=== PATIENT | male | born 1960 | race Caucasian/White ===

== ENCOUNTER → 2021-06-21 09:37 | Outpatient (CLI) | payer MEDICARE, MEDICAID, SELFPAY ==
[2021-06-21 10:07] LABS: Basophils % 0.6 % (0.1-2.0); Eosinophils # 0.1 K/mm3 (0.0-0.4); Eosinophils % 1.3 % (0.1-12.0); Hematocrit 50.3 % (42.0-52.0); Hemoglobin 17.1 g/dL (14.1-18.0); Lymphocytes # 1.3 K/mm3 (0.7-4.5); Lymphocytes % 18.2 % (10-50); Mean Corpuscular Hemoglobin 34.7 pg (27.0-31.2); Mean Platelet Volume 9.3 fl (7.4-10.4); Monocytes # 0.4 K/mm3 (0.1-1.0); Monocytes % 6.2 % (1.7-9.3); Neutrophils # 5.2 K/mm3 (1.8-7.8); Neutrophils % 73.6 % (37.0-80.0); Platelet Count 186 K/mm3 (142-424); Red Blood Count 4.93 M/mm3 (4.60-6.20); Red Cell Distribution Width 12.5 % (11.5-17.5)
[2021-06-21 10:52] LABS: Alanine Aminotransferase 35 U/L (12-78); Albumin Level 4.6 g/dl (3.5-5.0); Albumin/Globulin Ratio 1.5 (1.1-1.8); Alkaline Phosphatase 93 U/L (38-126); Anion Gap 10.7 mEq/L (5-15); Aspartate Amino Transferase 31 U/L (17-59); Bilirubin,Total 1.1 mg/dl (0.2-1.3); Blood Urea Nitrogen 10 mg/dl (9-20); Calcium 9.7 mg/dl (8.4-10.2); Carbon Dioxide 29 mmol/L (22.0-30.0); Chloride 104 mmol/L (98-107); Chol/HDL Ratio 2.8 (1-3.5); Cholesterol 142 mg/dl (140-200); Estimated Glomerular Filt Rate 114 ml/min (>60); GFR (African American) 138 ML/MIN (>60); Glucose 110 mg/dl (74-100); HDL Cholesterol 50 mg/dl (40-60); Potassium 4.7 mmoL/L (3.5-5.1); Sodium 139 mmol/L (136-145); Total Protein,Serum 7.6 g/dl (6.3-8.2); Triglycerides 102 mg/dl (30-150); VLDL Cholesterol 20 mg/dL (0-40)
[2021-06-21 11:03] LABS: Direct LDL Cholesterol 70.51 mg/dL (100-129)
[2021-06-21 11:10] LABS: 25-OH Vitamin D, Total 61.1 ng/mL (30-100)
[2021-06-21 11:23] LABS: Thyroid Stimulating Hormone 1.54 uIU/mL (0.465-4.68)
[2021-06-21 11:41] LABS: Vitamin B12 795 pg/mL (239-931)
== END ==
PROVIDERS: Visit Provider Internal Medicine Adolescent Medicine
DX: G20 Parkinson's disease (principal); E78.5 Hyperlipidemia, unspecified; Z86.39 Personal history of other endocrine, nutritional and metabolic disease
CPT/HCPCS: 36415; 80053; 80061; 82306; 82607; 84443; 85025

== ENCOUNTER 2023-12-01 15:36 | Outpatient (CLI) | payer MEDICARE, MEDICAID, SELFPAY ==
--- NOTE | 2023-12-01 15:53 | ECG_ITS ---
APPROVED REPORT Exam: Resting ECG HR:62 bpm ECG Measurements Heart Rate 62 AXES NV 192 P 35 QRSd 91 QRS 52 QT 435 T 67 QTc 441 Conclusion SINUS RHYTHM NONSPECIFIC T-WAVE ABNORMALITY BORDERLINE ECG UNCONFIRMED REPORT Electronically signed by : Clyde Pruitt MD 12/03/2023 20:59:06
== END 2023-12-01 23:59 ==
LOC: RT 15:37
PROVIDERS: PCP Specialist; Visit Provider Specialist
DX: R07.9 Chest pain, unspecified (principal)
CPT/HCPCS: 93005

== ENCOUNTER 2024-01-25 14:50 | Emergency (ER) | payer MEDICARE, MEDICAID, SELFPAY ==
--- NOTE | 2024-01-25 14:57 | XR_ITS ---
PROCEDURE INFORMATION: Exam: XR Left Hand Exam date and time: 01/25/2024 2:56 PM Age: 63 years old Clinical indication: Injury or trauma; Fall; Swelling (edema); Wrist; Left; Additional info: Fell TECHNIQUE: Imaging protocol: Radiologic exam of the left hand. Views: 3 or more views. COMPARISON: No relevant prior studies available. FINDINGS: Limitations: Lateral view limited due to overlap of the fingers. Bones/joints: Acute mildly comminuted transverse fracture of the radius distal diametaphysis; there is 1/4 shaft width dorsal subluxation of the distal fracture fragment, with mild dorsal tilt of the articular surface. Degenerative change of the 1st metacarpal phalangeal joint. Soft tissues: Soft tissue swelling. IMPRESSION: Acute mildly comminuted transverse fracture of the radius distal diametaphysis; there is 1/4 shaft width dorsal subluxation of the distal fracture fragment, with mild dorsal tilt of the articular surface.
--- NOTE | 2024-01-25 14:57 | XR_ITS ---
PROCEDURE INFORMATION: Exam: XR Left Forearm Exam date and time: 01/25/2024 3:02 PM Age: 63 years old Clinical indication: Injury or trauma; Fall; Swelling (edema); Wrist; Left; Additional info: Fell TECHNIQUE: Imaging protocol: Radiologic exam of the left forearm. Views: 2 views. COMPARISON: CR Wrist L 01/25/2024 2:58 PM FINDINGS: Bones/joints: Acute transverse fracture of the radius distal diametaphysis; there is 1/4 shaft width dorsal subluxation of the distal fracture fragment, with mild dorsal tilt of the articular surface. Soft tissues: Soft tissue swelling at the wrist. IMPRESSION: Acute transverse fracture of the radius distal diametaphysis; there is 1/4 shaft width dorsal subluxation of the distal fracture fragment, with mild dorsal tilt of the articular surface.
--- NOTE | 2024-01-25 14:57 | XR_ITS ---
PROCEDURE INFORMATION: Exam: XR Left Wrist Exam date and time: 01/25/2024 2:58 PM Age: 63 years old Clinical indication: Injury or trauma; Fall; Swelling (edema); Wrist; Left; Additional info: Fell TECHNIQUE: Imaging protocol: Radiologic exam of the left wrist. Views: 3 or more views. COMPARISON: CR Hand L 01/25/2024 2:56 PM FINDINGS: Bones/joints: Acute mildly comminuted transverse fracture of the radius distal diametaphysis; there is 1/4 shaft width dorsal subluxation of the distal fracture fragment, with mild dorsal tilt of the articular surface. Soft tissues: Soft tissue swelling. IMPRESSION: Acute mildly comminuted transverse fracture of the radius distal diametaphysis; there is 1/4 shaft width dorsal subluxation of the distal fracture fragment, with mild dorsal tilt of the articular surface.
[2024-01-25 15:10] VITALS: BP 145/78; PULSE 60; RESP 18; TEMP 36.4; O2SAT 96; BMI 34.0
--- NOTE | 2024-01-25 15:38 | EXP.UTC ---
Discharge Plan Disposition Patient Disposition: Home, Self-Care Condition: Good Prescriptions Prescriptions: No Action amantadine HCl 100 mg capsule 100 mg PO BID Qty: 60 5RF donepezil [Aricept] 10 mg tablet 10 mg PO HS atorvastatin 40 mg tablet 40 mg PO HS cholecalciferol (vitamin D3) 25 mcg (1,000 unit) capsule 25 mcg PO DAILY cyanocobalamin (vitamin B-12) 1,000 mcg capsule 1,000 mcg PO DAILY diclofenac sodium 75 mg tablet,delayed release (DR/EC) 75 mg PO BID propranolol 10 mg tablet 10 mg PO BID sertraline [Zoloft] 50 mg tablet 50 mg PO DAILY carbidopa-levodopa 25-100 mg tablet 2 tab PO TID Qty: 180 11RF carbidopa-levodopa 50-200 mg tablet extended release 1 tab PO TID Qty: 90 12RF entacapone 200 mg tablet 200 mg PO TID Qty: 90 11RF Referrals Follow up/Referrals: Lyndon Gutierrez DO [Staff Physician] - See instructions (Call office on 01/26/2024 in AM to schedule appointment for 01/29/2024. ) Clyde Pruitt MD [Primary Care Provider] - See instructions Activity Restrictions/Add. Instructions Additional Instructions/Restrictions: rest Ice with cold pack for 20 minutes remove may repeat for comfort every hour splint for support and swelling no less in the shower. Be sure not too tight but not to lose either Elevate with arm above your heart as much as possible to help reduce swelling and therefore pain Ibuprofen every 6 hours as needed for pain or inflammation. If needs something more you can take Tylenol every 4 hours as needed as long as her primary care has told he was okayed for you to take both. Follow-up immediately if new or worsening symptoms or no noticeable improvement over the next 3-5 days. call ortho on friday for appointment on Clinical Impressions Clinical Impression: Distal radial fracture Instructions Patient Instructions: DI for Forearm Fracture Discharge ED Provider: Edenilson ([facility])Mackenzie [facility] HPI General Stated complaint: AO Fall left wrist swelling/pain Mode of Arrival: Ambulatory Source of Information: Patient Limitations: No Limitations Time Seen by Provider: 01/25/24 15:38 Description of Symptoms (Recalled from Triage Doc. by RN): Pt fell and hurt left wrist. HEENT Symptoms (Recalled from RN notes): No Resp Symptoms (Recalled from RN notes): No Skin Symptoms (Recalled from RN notes): No MS Symptoms (Recalled from RN notes): Yes Functional Status (Recalled from RN notes): n/a History of Present Illness Provider Complaint: 63 yr old male presents for fell and hurt left wrist. pt states he was at the table and stood up and lost balance and fell and arm hit the floor. states no other areas hurt Related Data Home Medications Medication Instructions Recorded Confirmed atorvastatin 40 mg tablet 40 mg PO HS 01/22/23 01/25/24 cholecalciferol (vitamin D3) 25 25 mcg PO DAILY 01/22/23 01/25/24 mcg (1,000 unit) capsule cyanocobalamin (vitamin B-12) 1,000 mcg PO DAILY 01/22/23 01/25/24 1,000 mcg capsule diclofenac sodium 75 mg 75 mg PO BID 01/22/23 01/25/24 tablet,delayed release donepezil 10 mg tablet (Aricept) 10 mg PO HS 01/22/23 01/25/24 propranolol 10 mg tablet 10 mg PO BID 01/22/23 01/25/24 sertraline 50 mg tablet (Zoloft) 50 mg PO DAILY 01/22/23 01/25/24 Previous Rx's Medication Instructions Recorded carbidopa 25 mg-levodopa 100 mg 2 tab PO TID #180 tabs 11/25/23 tablet carbidopa ER 50 mg-levodopa 200 mg 1 tab PO TID #90 tabs 11/25/23 tablet,extended release entacapone 200 mg tablet 200 mg PO TID #90 tabs 11/25/23 amantadine HCl 100 mg capsule 100 mg PO BID #60 caps 12/01/23 Allergies Allergy/AdvReac Type Severity Reaction Status Date / Time No Known Allergies Allergy Verified 01/25/24 15:36 Worker's Comp Is this a Worker's Comp case?: No [facility] Disclaimer: The information contained in this section may have been updated after the patient was seen, as this information can be updated by other users. 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) Smoking Status: Never smoker alcohol intake: never current occupational status: retired Travel in the last 8 weeks: None ROS Obtained: Yes All systems reviewed & no additional complaints except as documented Constitutional Constitutional: Reports system reviewed and no additional complaints, except as documented Eyes Eyes: Reports system reviewed and no additional complaints, except as documented ENT Ears, Nose, Mouth, and Throat: Reports system reviewed and no additional complaints, except as documented Cardiovascular Cardiovascular: Reports system reviewed and no additional complaints, except as documented Respiratory Respiratory: Reports system reviewed and no additional complaints, except as documented Musculoskeletal Musculoskeletal: Reports system reviewed and no additional complaints, except as documented, Reports as per HPI, Reports arthralgias, Reports joint stiffness, Reports joint swelling and Reports limited range of motion Neurologic Neurologic: Reports system reviewed and no additional complaints, except as documented Endocrine Endocrine: Reports system reviewed and no additional complaints, except as documented Hematologic/Lymphatic Henatologic/Lymphatic: Reports system reviewed and no additional complaints, except as documented Allergic/Immunologic Allergic/Immunologic: Reports system reviewed and no additional complaints, except as documented Physical Exam General General appearance: alert and in no apparent distress Head Head exam: atraumatic Eye Eye exam: Present normal appearance and PERRL ENT ENT exam: Present normal exam Respiratory Respiratory exam: Present normal lung sounds bilaterally Cardiovascular Cardiovascular exam: Present regular rate and normal rhythm Expanded Upper Extremity Exam Left: L/R Arms Top View: 1. brusing, swelling Neurological Exam Neurological exam: Present alert and oriented X3 Skin Skin exam: Present warm and intact Medical Decision Making Medical Records Medical records reviewed: Yes I reviewed the patient's medical records. Zafar Inquiry Pt receiving controlled substance: No Zafar was queried for this patient: No Vital Signs: 01/25/24 15:10 Temperature 97.6 F Temperature Source Oral Pulse Rate [Right Radial] 60 Respiratory Rate 18 Blood Pressure [Right Arm] 145/78 H Blood Pressure Mean [Right Arm] 100 Blood Pressure Source [Right Arm] Automatic Cuff Blood Pressure Position [Right Arm] Sitting 02 Sat by Pulse Oximetry 96 Oxygen Delivery Method Room Air Orders (Tests/Meds): ORDERS Category Date Time Status Forearm XR left 2 views [XR forearm LT 2V] Stat Exams 01/25/24 14:57 Taken XR hand LT min 3V Stat Exams 01/25/24 14:57 Taken XR wrist LT min 3V Stat Exams 01/25/24 14:57 Taken Radiology Data #1: Image(s): Wrist Image Reviewed: Yes I have reviewed radiologist's interpretation Preliminary Findings: Abnormal fracture Physician Consults Physician Consulted: Dr gutierrez Time: 16:35 Reason -: Orthopedic Eval/Care Comment/Response: recommends sugar thong splint, sling, call office friday for appoint on
[2024-01-25 17:00] VITALS: BP 145/78; PULSE 60; RESP 18; TEMP 36.4; O2SAT 96
== END 2024-01-25 17:00 | disposition home or self-care (01) ==
PROVIDERS: Emergency Provider Nurse Practitioner Family; PCP Internal Medicine Adolescent Medicine
DX: S52.322A Displaced transverse fracture of shaft of left radius, initial encounter for closed fracture (principal); W18.39XA Other fall on same level, initial encounter; M25.532 Pain in left wrist
CPT/HCPCS: 73090; 73110; 73130; 99204; 99212; G0463

== ENCOUNTER 2024-01-29 09:46 | Outpatient (CLI) | payer MEDICARE, SELFPAY ==
[2024-01-29 10:10] LABS: Basophils % 0.4 % (0.1-2.0); Eosinophils # 0.1 K/mm3 (0.0-0.4); Hematocrit 44.9 % (42.0-52.0); Hemoglobin 14.8 g/dL (14.1-18.0); Lymphocytes # 1.3 K/mm3 (0.7-4.5); Lymphocytes % 19.3 % (10-50); Mean Corpuscular HGB Conc 32.9 g/dL (31.8-35.4); Mean Corpuscular Hemoglobin 33.9 pg (27.0-31.2); Mean Corpuscular Volume 102.9 fl (80-94); Mean Platelet Volume 9.5 fl (7.4-10.4); Monocytes # 0.5 K/mm3 (0.1-1.0); Monocytes % 7.5 % (1.7-9.3); Neutrophils # 4.6 K/mm3 (1.8-7.8); Neutrophils % 70.8 % (37.0-80.0); Platelet Count 161 K/mm3 (142-424); Red Blood Count 4.36 M/mm3 (4.60-6.20); Red Cell Distribution Width 13.2 % (11.5-17.5); White Blood Count 6.5 K/mm3 (4.8-10.8)
[2024-01-29 10:37] LABS: Chloride 106 mmol/L (98-107)
[2024-01-29 10:38] LABS: Potassium 4.4 mmoL/L (3.5-5.1); Sodium 140 mmol/L (136-145)
[2024-01-29 10:40] LABS: Alanine Aminotransferase 5 U/L (12-78); Alkaline Phosphatase 92 U/L (38-126); Aspartate Amino Transferase 27 U/L (17-59); Bilirubin,Total 0.9 mg/dl (0.2-1.3); Blood Urea Nitrogen 17 mg/dl (9-20); Estimated Glomerular Filt Rate 113 ml/min (>60); GFR (African American) 137 ML/MIN (>60)
[2024-01-29 10:41] LABS: Albumin Level 3.9 g/dl (3.5-5.0); Albumin/Globulin Ratio 1.5 (1.1-1.8); Anion Gap 8.4 mEq/L (5-15); Calcium 9.2 mg/dl (8.4-10.2); Carbon Dioxide 30 mmol/L (22.0-30.0); Globulin 2.6 g/dL (1.3-3.2); Glucose 100 mg/dl (74-100); Total Protein,Serum 6.5 g/dl (6.3-8.2)
== END 2024-01-29 23:59 | disposition home or self-care (01) ==
LOC: LAB 09:50
PROVIDERS: PCP Nurse Practitioner Family; Visit Provider Orthopaedic Surgery
DX: Z01.818 Encounter for other preprocedural examination (principal)
CPT/HCPCS: 36415; 80053; 85025

== ENCOUNTER 2024-02-04 10:33 | Day surgery (SDC) | payer MEDICARE, SELFPAY ==
[2024-02-03 13:13] VITALS: BMI 29.9
[2024-02-04] VITALS (11 sets, daily range): BP systolic 143–160; BP diastolic 77–108; PULSE 71–83; RESP 16–26; TEMP 36.1–36.5; O2SAT 91–98
[2024-02-04] MEDS: CEFAZOLIN SODIUM 2 GM in 0.9 % SODIUM CHLORIDE 100 ML IV (11:33)
--- NOTE | 2024-02-04 13:38 | XR_ITS ---
FINAL REPORT CLINICAL HISTORY: ORIF LEFT WRIST 2.76 mgy 1.41 fluoro time FINDINGS: FLUOROSCOPY LESS THAN 1 HOUR HISTORY: Fluoroscopy guidance. Fluoroscopic guidance was provided for ORIF left wrist. 2 spot films were obtained. A total of 1.41 minutes of fluoroscopy time were used. Total DAP: 2.76 mGy IMPRESSION: As above. Reviewed, Interpreted and Dictated by Dawit Hanley III, MD Transcribed by Renay Brady Authenticated and [facility]
--- NOTE | 2024-02-04 14:03 | EXP.OP.NOTE ---
Date of procedure: 02/04/24 Pre-op Diagnosis:: Left distal radius fracture intra-articular Post-op Diagnosis:: Same Procedure performed:: Open reduction internal fixation left distal radius fracture 3+ part, intra-articular Surgeon:: Lyndon Franco DO TAPERING MACHINE OPERATOR:: Bandar Henriquez Anesthesia: GETA and regional Estimated blood loss (mL): 0 Operative findings:: Comminuted intra-articular distal radius fracture with shortening and loss of volar tilt Operative note:: Patient was identified preoperatively. Left wrist marked with yes and my initials. Underwent a block with anesthesia. Taken the operating room placed upon operating bed. General anesthesia administered airway secured. Left upper extremity prepped and draped normal sterile fashion. Once prepped and draped final operative timeout performed to identify proper patient procedure and extremity. Everyone involved in the case agreed. There were no counter indications to beginning. Did receive preoperative antibiotics. Marking pen was used to ekaterina plan incision over the volar wrist and the FCR tendon. Esmarch was used to exsanguinate the extremity and pneumatic tourniquet inflated to 250 mmHg. Skin knife was used to incise through skin and FCR tendon sheath which was retracted radially throughout the procedure to protect the radial artery. The floor of the FCR was then open. Dissection was taken down the pronator muscle which was cut in L-type fashion off the distal radius. Fracture site was encountered hematoma encountered. There was intra-articular fracture at the DRUJ and radiocarpal joint. Shortening and comminution present. Reduction maneuver performed under direct visualization with the help of a freer elevator. With traction and reduction maneuver radius was reduced to restore length and neutral volar tilt. Plate was selected from the [employer] volar distal radius set and placed on the wrist. Pulmonary really held to the bone with a K wire. A cortical screw was placed proximally to reduce the plate to the bone and then distal variable guide was utilized to placed appropriate angle locking distal screws. An additional cortical screw was placed and additional locking screw was placed in the shaft. X-rays were taken the AP and lateral views that show good reduction of the fracture with appropriate length and acceptable tilt. Irrigation of wound performed deep layers closed with Vicryl stitch skin closed with a 3-0 nylon stitch. Sterile dressing placed well-padded volar splint placed patient waken anesthesia taken recovery stable condition Condition: stable Disposition: PACU Complications:: None apparent
--- NOTE | 2024-02-04 14:45 | P.PNANES_ITS ---
[facility] Disclaimer: The information contained in this section may have been updated after the patient was seen, as this information can be updated by other users. 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 Chest pain Recurrent chest pressure in the last few weeks. Today the patient was asymptomatic. Arthritis Hyperlipidemia Memory loss Memory loss currently on donezepil 10 mg p.o. nightly. Differential gnosis includes: MCI with memory loss versus subcortical dementia of Lewy body. Denies parasomnias, REM behavior disorder, hallucinations. Surgical History History of artificial eye lens Family History Other Coronary artery disease Diabetes Hypertension Social History Smoking Status: Never smoker alcohol intake: never substance use type: denies use current occupational status: retired Travel in the last 8 weeks: None [facility] Anesthesia Checklist Patient Identification Patient Identification: Arm Band and Family Structural Data Admitted From: Home Planned Operative Procedure/s: ORIF RADIUS FRACTURE Consent for Planned Operative Procedure(s) Verified: Yes Verified Documents: Surgical Consent and History and Physical NPO Status Verified Time NPO: 00:00 Additional verifications Patient : No Anesthesia Reactions: No Hx Blood Transfusions: No Blood Transfusion Reaction: No Cephalosporin Allergy: No Previous Colonoscopy: No Airway Assessment Mallampati Score:: Class II C-Spine Mobility Assessed: Yes TMJ Mobility Assessed: Yes Dentition: Poor Dentition Neurological Assessment Level of Consciousness: Awake, Alert, Appropriate and Follows Commands Hx Seizures: No Numbness or tingling in extremities: No Anesthesia Plan ASA Class: II Anesthesia Type: General w/block Preoperative Comments Pre-Operative Comments: Parkinson's disease
--- NOTE | 2024-02-04 14:48 | P.PNANES_ITS ---
[facility] Anesthesia Record Part I Anesthesia Record I Intake, IV Amount: 800 Hydration: Adequate Estimated blood loss (mL): 10 Urine output (mL): 0 Blood Products used (#): none Blood Pressure: 155/77 SaO2: 91 Pulse Rate: 74 Airway Patency: Patent Respiratory Rate: 26 Temperature: 97.2 F Patient is:: Drowsy and Stable Stable to PACU at:: 14:00
--- NOTE | 2024-02-04 15:04 | SUR.PHASEI ---
1430: Anesthesia notified of patient's O2 saturation staying in low 90's. Per TANIA Landeros patient status satisfactory to transfer to Post-op. 1440: Patient O2 saturation remaining between 93-95%. Patient transferred to Post-op at this time.
--- NOTE | 2024-02-04 16:47 | EXP.ANES.II ---
[facility] Anesthesia Record Part II Anesthesia Record Part II Discharge Time: 14:30 Destination: Surgical Day Care (OP Surgery) PACU nurse assessment reviewed?: Yes Patient Condition:: Good Anesthesia Complications:: None Swallowing reflex intact?: Yes Airway Patency: Patent Cyanosis?: No Blood Pressure: 152/97 SaO2: 94 Respiratory Rate: 18 Pulse Rate: 80 Temperature: 97.2 F Mental Status: Alert & Oriented Pain level:: 0 Nausea and/or vomitting:: None Intake, IV Amount: 0 Hydration: Adequate
== END 2024-02-04 15:16 | disposition home or self-care (01) ==
PROVIDERS: PCP Nurse Practitioner Family; Visit Provider Orthopaedic Surgery
PROC: (CPT 25609; principal; 2024-02-04 11:00)
DX: S52.572A Other intraarticular fracture of lower end of left radius, initial encounter for closed fracture (principal); Z79.899 Other long term (current) drug therapy; R29.6 Repeated falls; W01.0XXA Fall on same level from slipping, tripping and stumbling without subsequent striking against object, initial encounter; Z91.81 History of falling; G20.A1 Parkinson's disease without dyskinesia, without mention of fluctuations
CPT/HCPCS: 25609; 73100; 76000; 96374; J3490; C1713; C1776; J2405

== ENCOUNTER 2024-02-19 09:09 | Outpatient (CLI) | payer MEDICARE, SELFPAY ==
--- NOTE | 2024-02-19 09:12 | XR_ITS ---
FINAL REPORT CLINICAL HISTORY: left orif COMPARISON: Intraoperative films dated 02/04/2024 FINDINGS: 3 images of the left wrist were obtained. An overlying splint slightly limits image quality. A sideplate and screws bridge a healing fracture of the distal radius. There is slight dorsal displacement of the distal fragment on the lateral view. The joint spaces are intact. There is no soft tissue abnormality identified. IMPRESSION: Healing fracture of the distal radius with a sideplate and screws as described. There is slight dorsal displacement of the distal fragment on the lateral view. Reviewed, Interpreted and Dictated by Eloy Pollock MD Transcribed by Lu Mitchell Authenticated and [facility]
== END 2024-02-19 23:59 | disposition home or self-care (01) ==
LOC: RAD 09:10
PROVIDERS: PCP Nurse Practitioner Family; Visit Provider Physician Assistant Surgical
DX: M25.532 Pain in left wrist; S52.532A Colles' fracture of left radius, initial encounter for closed fracture
CPT/HCPCS: 73110

== ENCOUNTER 2024-03-01 10:38 | Outpatient (CLI) | payer MEDICARE, SELFPAY ==
--- NOTE | 2024-03-01 10:43 | XR_ITS ---
FINAL REPORT CLINICAL HISTORY: lt wrist pain FINDINGS: LEFT WRIST Three views of the left wrist were obtained to prior exam from 02/19/2024. There are postoperative changes of ORIF of a distal radial fracture. There is also a fracture of the ulnar styloid process. There has been sideplate and screw fixation. One of the distal screws has migrated anteriorly 17 mm. IMPRESSION: Sideplate and screw fixation of distal radial fracture with a distal screw seen migrated anteriorly 17 mm. Reviewed, Interpreted and Dictated by Dawit Hanley III, MD Transcribed by Gisella Tamez Authenticated and [facility]
== END 2024-03-01 23:59 | disposition home or self-care (01) ==
LOC: RAD 10:39
PROVIDERS: PCP Nurse Practitioner Family; Visit Provider Orthopaedic Surgery
DX: M25.532 Pain in left wrist; S52.532A Colles' fracture of left radius, initial encounter for closed fracture
CPT/HCPCS: 73110

== ENCOUNTER 2024-03-10 17:35 | Observation (INO) | payer MEDICARE, SELFPAY ==
[2024-03-09 08:43] VITALS: BMI 33.9
[2024-03-10] VITALS (20 sets, daily range): BP systolic 104–176; BP diastolic 65–100; PULSE 78–94; RESP 14–18; TEMP 36.4–36.9; O2SAT 92–99
[2024-03-10] MEDS: LACTATED RINGERS 1000ML 1,000 ML 100 ML IV ×2 (11:10→20:09)
--- NOTE | 2024-03-10 14:13 | EXP.ANES.CKL ---
[facility] Disclaimer: The information contained in this section may have been updated after the patient was seen, as this information can be updated by other users. 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 Chest pain Recurrent chest pressure in the last few weeks. Today the patient was asymptomatic. Arthritis Hyperlipidemia Memory loss Memory loss currently on donezepil 10 mg p.o. nightly. Differential gnosis includes: MCI with memory loss versus subcortical dementia of Lewy body. Denies parasomnias, REM behavior disorder, hallucinations. Surgical History History of artificial eye lens Family History Other Coronary artery disease Diabetes Hypertension Social History (Updated 03/10/24 @ 11:11 by Kay Jackson RN) Smoking Status: Never smoker alcohol intake: never substance use type: denies use current occupational status: retired Travel in the last 8 weeks: None [facility] Anesthesia Checklist Patient Identification Patient Identification: Arm Band Structural Data Admitted From: Home Planned Operative Procedure/s: Left Wrist Hardware Removal, Possible Screw Placement Consent for Planned Operative Procedure(s) Verified: Yes Verified Documents: Surgical Consent and History and Physical NPO Status Verified Time NPO: 00:00 Additional verifications Anesthesia Reactions: No Hx Blood Transfusions: No Blood Transfusion Reaction: No Airway Assessment Mallampati Score:: Class II C-Spine Mobility Assessed: Yes TMJ Mobility Assessed: Yes Dentition: Good Dentition Neurological Assessment Level of Consciousness: Awake, Alert and Appropriate Anesthesia Plan Anesthesia Risk discussed: Yes Anesthesia Plan: Verified ASA Class: III Anesthesia Type: General w/block (Left Supraclavicular Nerve Block.)
[2024-03-10] MEDS: CEFAZOLIN SODIUM 2 GM in 0.9 % SODIUM CHLORIDE 100 ML IV (14:18)
--- NOTE | 2024-03-10 15:38 | XR_ITS ---
FINAL REPORT CLINICAL HISTORY: HARDWARE REMOVAL 0.3 MIN FLUORO 0.42 mGy FINDINGS: FLUOROSCOPY LESS THAN 1 HOUR HISTORY: Intraoperative removal of hardware left wrist FINDINGS: Fluoroscopic guidance was provided for intraoperative hardware removal from the left wrist. For spot films were obtained. 0.3 minutes of fluoroscopy time were used. Overall dosage accrued was 0.42 mGy. IMPRESSION: As above. Reviewed, Interpreted and Dictated by Laura Lloyd MD Transcribed by Lu Mitchell Authenticated and [facility]
--- NOTE | 2024-03-10 16:17 | P.PNANES_ITS ---
[facility] Anesthesia Record Part I Anesthesia Record I Intake, IV Amount: 1,500 Hydration: Adequate Estimated blood loss (mL): 0 Urine output (mL): 0 Blood Pressure: 140/100 SaO2: 96 Pulse Rate: 89 Airway Patency: Patent Respiratory Rate: 14 Temperature: 97.6 F Patient is:: Awake and Stable Stable to PACU at:: 16:16
--- NOTE | 2024-03-10 16:21 | EXP.OP.NOTE ---
Date of procedure: 03/10/24 Pre-op Diagnosis:: Failed hardware left wrist status post fall after previous open reduction internal fixation with volar plating Post-op Diagnosis:: Same Procedure performed:: Left wrist removal of implants, deep. Volar plate with screws Surgeon:: Lyndon Franco DO CNC SERVICE TECHNICIAN:: Adam Rainey Anesthesia: GETA and regional Estimated blood loss (mL): 20 Clinical Note:: Patient had previous open reduction internal fixation with volar plating to the wrist. Unfortunately had several falls during the recovery period. This is caused by his Parkinson disease and balance issues. Subsequently because failure of the hardware and prominence of the distal locking screws which need to be removed. Operative findings:: Hardware failure with bending of 1 distal locking screw and loosening of 3 distal locking screws from the volar plate Operative note:: Patient identified preoperatively. Left wrist marked with yes and my initials. Underwent a block with anesthesia. Taken the operating room placed upon the radiolucent bed with a hand table. Left upper extremity was prepped and draped in normal sterile fashion. Once prepped and draped final operative timeout performed to identify proper patient procedure and extremity. Everyone involved the case agreed. There were no counter indications to beginning. Did receive preoperative antibiotics. X-ray was brought into identify distal radius and prominence of the distal locking screws. Skin knife is used to ekaterina plan incision over the volar wrist to previous incision. Esmarch was used exsanguinate extremity pneumatic tourniquet inflated to 250 mmHg. Skin knife was used incise through skin there is 1 very prominent screw that was removed without difficulty. Then dissection was taken down in the plane of previous dissection to the volar plate. FCR tendon was retracted radially throughout the procedure to protect the radial artery. Careful dissection was taken down to remove the scarring and scar tissue over the volar plate the remainder of the distal locking screws were removed without difficulty and the 3 screws in the shaft were removed subsequently followed by the volar plate. Unfortunately during fall during recovery the fracture site had shifted however there was a significant amount of callus and early healing present. Decision was made not to replace screws distally secondary to the shifting of the fracture and stability radiographically. Irrigation of wound performed subcutaneous closed with Vicryl stitch nylon in the skin. X-rays were taken to confirm complete removal of the hardware. Sterile dressing placed followed by a sugar-tong splint and a sling. Patient waken anesthesia taken recovery in stable condition. Condition: stable Disposition: PACU Complications:: None apparent
--- NOTE | 2024-03-10 17:31 | SUR.OPER ---
house aware of admission.
--- NOTE | 2024-03-10 17:31 | SUR.PHASEII ---
1703: Pt's sister states she is unable to stay with the patient over night. Pt has had general anesthesia, a supraclavicular nerve block on the left side, ambulates at baseline with a walker, and does not have any family members who can stay with him. Dr. Franco called at this time and he advised this RN to call the housekeeper caregiver and Dr. Mehta for possible placement on the medical surgical floor over night. 1705: Spoke with Dr. Mehta and housekeeper caregiver. Dr. Mehta to call this RN with further instruction. 1730: Call received from Dr. Mehta. Will admit due to patient's inability to ambulate with his walker due to his cast and block.
--- NOTE | 2024-03-10 17:33 | SUR.PHASEII ---
warehouseman called and stated pt will be going to room 207. sister aware.
--- NOTE | 2024-03-10 17:42 | SUR.PHASEII ---
attempted to call report to norberto quevedo. she stated to call back in 5 minutes.
--- NOTE | 2024-03-10 17:58 | SUR.PHASEII ---
called report to norberto quevedo
--- NOTE | 2024-03-10 18:02 | PC.NURSE ---
arrived by stretcher from surgery
--- NOTE | 2024-03-10 19:24 | EXP.HP ---
History of Present Illness *Admission Date: 03/10/24 *Reason for visit:: Inability to ambulate independently, postop left wrist surgery *History of present illness: Mr. Altamirano is a 63-year-old gentleman with Parkinson's disease who has experienced multiple falls over the past few months. Approximately 5 weeks ago he fell and broke his left wrist. It was repaired with open reduction and internal fixation with volar plating. Unfortunately he has had multiple falls during the healing, and sustained failure of his hardware. Due to falls from his Parkinson's, had failure of hardware and prominence of the distal locking screw which needed to be removed. Presented today for elective removal of implants including deep volar plate with screws. Patient tolerated procedure well. Unfortunately, unable to discharge home safely as he has no one to stay with him and lives by himself in an independent living setting. Medicine was consulted for admission and therapy evaluation to assist with safe dispo home. Patient's sister at bedside, and states of discussion about goals of care plan. Patient has been having progression of his disease. Plan was for him to move in with her after building a new house, but this plan has been delayed due to construction difficulties. Patient currently gets around with walker and cane. He gets assistance where he lives with assistance of food. Takes extensive medication for his Parkinson's daily. Currently had some nerve block of left upper extremity to assist with pain control. Unfortunately that means he cannot use his left arm. Patient stable on room air. Denies any chest pain or shortness of breath. [facility] Disclaimer: The information contained in this section may have been updated after the patient was seen, as this information can be updated by other users. 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 Chest pain Arthritis Hyperlipidemia Memory loss Surgical History History of artificial eye lens Family History Diabetes Coronary artery disease Hypertension Social History Smoking Status: Never smoker alcohol intake: never substance use type: denies use current occupational status: retired Travel in the last 8 weeks: None Review of Systems Review of Systems Review of systems (narrative): 14 point review of systems performed, pertinent positives and negatives as per [facility] Meds Home Medications and Allergies Home Medications Medication Instructions Recorded Confirmed Type atorvastatin 40 mg tablet 40 mg PO HS 01/22/23 03/10/24 History cholecalciferol (vitamin D3) 25 25 mcg PO DAILY 01/22/23 03/10/24 History mcg (1,000 unit) capsule cyanocobalamin (vitamin B-12) 1,000 mcg PO DAILY 01/22/23 03/10/24 History 1,000 mcg capsule diclofenac sodium 75 mg 75 mg PO BID 01/22/23 03/10/24 History tablet,delayed release donepezil 10 mg tablet (Aricept) 10 mg PO HS 01/22/23 03/10/24 History propranolol 10 mg tablet 10 mg PO BID 01/22/23 03/10/24 History sertraline 50 mg tablet (Zoloft) 50 mg PO DAILY 01/22/23 03/10/24 History carbidopa ER 50 mg-levodopa 200 mg 1 tab PO TID #90 tabs 11/25/23 03/10/24 Rx tablet,extended release entacapone 200 mg tablet 200 mg PO TID #90 tabs 11/25/23 03/10/24 Rx amantadine HCl 100 mg capsule 100 mg PO BID #60 caps 12/01/23 03/10/24 Rx carbidopa 25 mg-levodopa 100 mg 2 tab PO .COMPLEX 02/02/24 03/10/24 History tablet hydrocodone 5 mg-acetaminophen 325 1 tab PO Q4H PRN post op pain #42 03/10/24 Rx mg tablet tabs New Prescriptions to Start Prescriptions: hydrocodone-acetaminophen Lyndon Franco Allergies Allergy/AdvReac Type Severity Reaction Status Date / Time No Known Allergies Allergy Verified 03/10/24 11:10 Exam Data for Last 24 hours Vital signs and Labs for Last 24 Hours: Temp Pulse Resp BP Pulse Ox O2 Del Method 98.3 F 88 16 130/73 94 L Room Air 03/10/24 18:15 03/10/24 19:00 03/10/24 19:00 03/10/24 19:00 03/10/24 19:00 03/10/24 19:00 I & O for Last 24 hours: Intake & Output 03/07/24 03/08/24 03/09/24 03/10/24 23:59 23:59 23:59 23:59 Intake Total 1500 / 1500 Balance 1500 / 1500 Weight 104.3 kg Constitutional Constitutional: no acute distress, obese and chronically ill appearing *Routine HEENT Exam Head: Present normocephalic Eye: Present EOMI and PERRL ENT: Present mucous membranes moist *Routine Neck Exam Neck: Present supple; Absent lymphadenopathy *Routine Respiratory Exam Respiratory: Present CTA bilaterally; Absent rhonchi, wheezes or crackles *Routine Cardiovascular Exam Cardiovascular: Present RRR *Routine Abdominal Exam Abdominal: Present soft and normoactive bowel sounds; Absent tenderness *Routine Rectal Exam Rectal:: deferred *Routine Genitalia Exam Genitalia:: deferred *Routine Extremities Exam Extremities: Absent cyanosis, clubbing or edema Comments: Left upper extremity in a sling, unable to move hand due to nerve block; fingers warm with pulses intact *Routine Skin Exam Skin: Present warm; Absent rash *Routine Neurological Exam Neurological: Present alert, oriented X3 and moving all extremities; Absent altered mental status Comments: Movement slow, speech slow, masked facies Assessment and Plan *Assessment and plan (1) Parkinson's Disease: Problem Comment: Currently on carbidopa/levodopa 25/100, 2 tablet p.o. 3 times daily and carbidopa/levodopa CR 50/200, 1 tablet 3 times daily. Rytary was discontinued due to cost. Comtan 200 mg po tid with symptomatic improvement but mild dyskinesias and doing better w/o evidence of dyskinesia after he was started on amantadine 100 mg twice daily. Status: Chronic Qualifiers: Dyskinesia presence: with dyskinesia Fluctuating manifestations: without fluctuating manifestations Qualified Code(s): G20.B1 - Parkinson's disease with dyskinesia, without mention of fluctuations Category: Medical Code(s): G20 - Parkinson's disease (2) Distal radius fracture, left: Problem Comment: Status post ORIF left distal radius Status: Acute Qualifiers: Encounter type: initial encounter Fracture morphology: Colles' Fracture type: closed Qualified Code(s): S52.532A - Colles' fracture of left radius, initial encounter for closed fracture Category: Medical Code(s): S52.502A - Unspecified fracture of the lower end of left radius, initial encounter for closed fracture (3) Memory loss: Problem Comment: Memory loss currently on donezepil 10 mg p.o. nightly. Differential gnosis includes: MCI with memory loss versus subcortical dementia of Lewy body. Denies parasomnias, REM behavior disorder, hallucinations. Status: Chronic Category: Medical Code(s): R41.3 - Other amnesia (4) Hyperlipidemia: Status: Acute Category: Medical Code(s): E78.5 - Hyperlipidemia, unspecified (5) Arthritis: Status: Acute Category: Medical Code(s): M19.90 - Unspecified osteoarthritis, unspecified site Plan 63-year-old male who presented for removal of feeling hardware from left distal wrist. History of Parkinson's, multiple falls. Surgery tolerated well. Discussed case with orthopedics team, request admission for monitoring overnight and assistance with rehab/placement. Agreed to admit for further evaluation and management. Problems addressed as follows: Distal radial fracture left forearm Failed volar plate hardware -Hardware removed today, procedure tolerated well. Nerve block performed, pain stable at this time -PT/OT eval ordered for the morning. Case management consulted to assist with discharge planning -Patient having progressive weakness and increased falls, concerned about his safety and stability to go home by himself. Parkinson's disease: -Continue carbidopa levodopa 2 tabs orally 3 times a day -Continue entacapone 200 mg 3 times a day Memory loss: -Continue amantadine 100 mg twice daily -Continue donepezil 10 mg nightly Zoloft for depression 50 mg daily Full code Regular diet
[2024-03-10] MEDS: DONEPEZIL 10MG TAB 10 MG PO (20:07)
[2024-03-10] MEDS: AMANTADINE 100MG CAPSULE 100 MG PO (20:08)
[2024-03-10] MEDS: ATORVASTATIN 40MG TABLET 40 MG PO (20:08)
[2024-03-10] MEDS: CARBIDOPA/LEVODOPA CR 50/200MG TABLET 1 EACH PO (20:08)
--- NOTE | 2024-03-10 20:53 | PC.NURSE ---
REPORT RECEIVED FROM A FROHNA RN. PATIENT ARRIVED TO THE FLOOR AT 1800. ADMISSION NOT PERFORMED PATIENT UNABLE TO GIVE INFO. AND SISTER LEFT.
[2024-03-11] VITALS (7 sets, daily range): BP systolic 102–165; BP diastolic 59–82; PULSE 66–92; RESP 16–18; TEMP 36.4–36.8; O2SAT 94–98; BMI 31.8
--- NOTE | 2024-03-11 05:11 | PC.NURSE ---
ORIENTED SELF AND PLACE AND SITUATION. PATIENT DENIES PAIN. UNABLE TO MOVE FINGERS DUE TO THE SPLINT BUT SAYS HE CAN FEEL PRESSURE. FINGERS WARM, DRY, PINK, COOD CAP REFILL. LEFT ARM IN SLING. INCONTINENT OF URINE. WEARS BRIEFS.
[2024-03-11] MEDS: LACTATED RINGERS 1000ML 1,000 ML 100 ML IV ×2 (05:51)
[2024-03-11 07:12] LABS: Chloride 108 mmol/L (98-107); Potassium 3.7 mmoL/L (3.5-5.1); Sodium 139 mmol/L (136-145)
[2024-03-11 07:15] LABS: Alanine Aminotransferase 17 U/L (12-78); Albumin Level 3.7 g/dl (3.5-5.0); Albumin/Globulin Ratio 1.2 (1.1-1.8); Alkaline Phosphatase 124 U/L (38-126); Anion Gap 8.7 mEq/L (5-15); Aspartate Amino Transferase 23 U/L (17-59); Bilirubin,Total 0.7 mg/dl (0.2-1.3); Blood Urea Nitrogen 16 mg/dl (9-20); Carbon Dioxide 26 mmol/L (22.0-30.0); Creatinine Clearance Estimated 102 mL/min (50-200); Estimated Glomerular Filt Rate 113 ml/min (>60); GFR (African American) 137 ML/MIN (>60); Glucose 139 mg/dl (74-100); Total Protein,Serum 6.7 g/dl (6.3-8.2)
[2024-03-11 07:20] LABS: Basophils % 0.1 % (0.1-2.0); Hematocrit 45.8 % (42.0-52.0); Hemoglobin 14.7 g/dL (14.1-18.0); Lymphocytes # 0.7 K/mm3 (0.7-4.5); Lymphocytes % 7.6 % (10-50); Mean Corpuscular Hemoglobin 34.2 pg (27.0-31.2); Mean Corpuscular Volume 106.6 fl (80-94); Mean Platelet Volume 9.7 fl (7.4-10.4); Monocytes # 0.3 K/mm3 (0.1-1.0); Monocytes % 2.9 % (1.7-9.3); Neutrophils # 8.1 K/mm3 (1.8-7.8); Neutrophils % 89.3 % (37.0-80.0); Platelet Count 173 K/mm3 (142-424); Red Cell Distribution Width 13.1 % (11.5-17.5); White Blood Count 9.1 K/mm3 (4.8-10.8)
[2024-03-11 07:33] LABS: MANUAL DIFFERENTIAL MANUAL DIFFERENTIAL (MANUAL DIFF)
--- NOTE | 2024-03-11 07:34 | HMH.PHAINT1 ---
Pharmacy Intervention Comments: HOME MEDICATION LIST VERIFIED USING LIST FROM OUTPATIENT PHARMACY AND PT INTERVIEW
[2024-03-11] MEDS: PROPRANOLOL 20MG TAB 10 MG PO (08:04)
[2024-03-11] MEDS: SERTRALINE 50MG TABLET 50 MG PO (08:04)
[2024-03-11] MEDS: CARBIDOPA/LEVODOPA CR 50/200MG TABLET 1 EACH PO ×2 (08:04→14:02)
[2024-03-11] MEDS: AMANTADINE 100MG CAPSULE 100 MG PO (08:04)
[2024-03-11] MEDS: CARBIDOPA/LEVODOPA 25/100MG TABLET 2 EACH PO ×2 (08:04→14:02)
--- NOTE | 2024-03-11 08:23 | EXP.ANES.II ---
[facility] Anesthesia Record Part II Anesthesia Record Part II Discharge Time: 16:43 Destination: Medical Surgical Department PACU nurse assessment reviewed?: Yes Patient Condition:: Good Anesthesia Complications:: None Swallowing reflex intact?: Yes Airway Patency: Patent Cyanosis?: No Blood Pressure: 165/82 SaO2: 96 Respiratory Rate: 16 Pulse Rate: 88 Temperature: 97.6 F Mental Status: Alert & Oriented Pain level:: 0 Nausea and/or vomitting:: None Intake, IV Amount: 0 Hydration: Adequate Comments:: pt admitted d/t family member being unable to stay with him overnight. Admitted for observation and care arrangements.
[2024-03-11 09:03] LABS: Lymphocytes % 4 % (10-50); Macrocytosis 2+; Monocytes % 3 % (2-9); Neutrophils % 93 % (42-76); Platelet Estimate Normal; Total Cells Counted 100
--- NOTE | 2024-03-11 10:25 | HMH.PTEV ---
Physical Therapy Evaluation Rehab PT IP Evaluation Start: 03/10/24 19:28 Freq: ONCE Status: Active Protocol: Document 03/11/24 10:19 ALVARO (Rec: 03/11/24 10:25 ALVARO [id number]) Subjective/History History History Per H&P: Mr. Altamirano is a 63- year-old gentleman with Parkinson's disease who has experienced multiple falls over the past few months. Approximately 5 weeks ago he fell and broke his left wrist. It was repaired with open reduction and internal fixation with volar plating. Unfortunately he has had multiple falls during the healing, and sustained failure of his hardware. Due to falls from his Parkinson's, had failure of hardware and prominence of the distal locking screw which needed to be removed. Presented today for elective removal of implants including deep volar plate with screws. Patient tolerated procedure well. Unfortunately, unable to discharge home safely as he has no one to stay with him and lives by himself in an independent living setting. Medicine was consulted for admission and therapy evaluation to assist with safe dispo home. Patient's sister at bedside, and states of discussion about goals of care plan. Patient has been having progression of his disease. Plan was for him to move in with her after building a new house, but this plan has been delayed due to construction difficulties. Subjective Subjective PLOF per pt report: IND with adls and ambulation using rollator and cane. Lives alone in an apartment at [place] apartment. Staff provides the meals. New diagnosis of cancer in past 12 No months? Rehab PT IP Eval Objective Appearance Patient Behavior Appropriate,Cooperative Patient Orientation Person,Situation Difficulty following instructions none Speech Pattern Clear Ambulation Patient Able to Ambulate No Balance Ability to Arise Able, uses arms to help Sitting Balance Steady, safe Standing Balance Unsteady Transfers Sit to Stand Bed Transfer Ability Moderate x 2 (50% assist) Rehab PT IP prob,goals,plan Problems Date of Evaluation: 03/11/24 PT IP Problems Bed Mobility,Transfers,Gait, Balance,Self care,Safety Rehab Potential Rehab Potential Good Equipment Needs Assistive Devices Straight Cane,Platform Walker Plan PT Intervention Plan Bed Mobility,Transfers,Gait, Balance,Safety,Therapeutic Exercise Other Intervention Plan 1-2 times PT Plan Frequency Daily Duration LOS Discharge Goals Bed Transfer Ability Minimal x 1 (25% assist) Sit to Stand Chair Transfer Ability Moderate x 1 (50% assist) Discharge Plan PT Discharge Plan Initial physical therapy evaluation performed. Pt greeted seated in recliner and was Mod x 2 to stand after 2 attempts. Pt unable to ambulate at this time d/t weakness and safety. Patient presents below baseline at this time in functional mobility, transfers, and strength. Pt not safe to return home at this time d/t current level of functional mobility. PT recommending short-term rehabilitation stay upon d/c from [facility]. Pt would benefit from skilled PT while at [facility] to prevent further functional decline and maximize safety with mobility. Eval Complexity Eval Charge Codes 57543 - Moderate Complexity PHYSICIAN CERTIFICATION: I certify the specified therapy services for Kleber Altamirano are required, authorized, and reviewed every 30 days.
--- NOTE | 2024-03-11 10:47 | HMH.OTEV ---
OT Inpatient Evaluation Rehab OT IP Evaluation Start: 03/10/24 19:28 Freq: ONCE Status: Active Protocol: Document 03/11/24 10:40 [facility] (Rec: 03/11/24 10:47 [facility] [id number]) Rehab OT IP Assessment Subjective History Pt oriented x 3 on arrival. Pt agreeable to engage in therapy evaluation. Pt admitted on 03/10/24 following surgery on left wrist. Mr. Altamirano is a 63-year-old gentleman with Parkinson's disease who has experienced multiple falls over the past few months. Approximately 5 weeks ago he fell and broke his left wrist. It was repaired with open reduction and internal fixation with volar plating. Unfortunately he has had multiple falls during the healing, and sustained failure of his hardware. Due to falls from his Parkinson's, had failure of hardware and prominence of the distal locking screw which needed to be removed. Presented today for elective removal of implants including deep volar plate with screws. Patient tolerated procedure well. Unfortunately, unable to discharge home safely as he has no one to stay with him and lives by himself in an independent living setting. Medicine was consulted for admission and therapy evaluation to assist with safe dispo home. Patient's sister at bedside, and states of discussion about goals of care plan. Patient has been having progression of his disease. Plan was for him to move in with her after building a new house, but this plan has been delayed due to construction difficulties. Subjective Normally I live alone. Pt reports prior to being in the hospital, he lived in an independent setting. Pt claims normally he is independent with dressing and feeding, but does require assistance from family with his bathing. He also normally uses a rolling walker during functional transfers. Pt is dependent upon staff for completion of cooking; family assists with other IADLs such as cleaning, laundry, etc. Objective Patient Orientation Person,Place,Birthday Right Upper Extremity Gross ROM WFL Left Upper Extremity Gross ROM Sev Limitation >75% Wrist Limitations of Range of Motion Muscle Weakness,Pain Transfer Training Sit/Stand Transfer Assist Level Maximum x 2 (75% assist) Rehab OT IP prob,goals,plan Problems Date of Evaluation: 03/11/24 OT IP Problems Bed Mobility,Transfers,Balance ,Self care,Safety Rehab Potential Rehab Potential Good Equipment Needs Assistive Devices Rolling / Wheeled Walker Plan OT intervention Plan Bed Mobility,Transfers,Balance ,Self care,Safety,Therapeutic Exercise OT Plan Frequency Daily Duration LOS Discharge Goals Bed Mobility Ability Assistance x1 Sit to Stand Chair Transfer Ability Moderate x 1 (50% assist) Chair Transfer Ability Moderate x 1 (50% assist) Chair Transfer Technique Sit to/from Ambulatory Chair Transfer Assistive Devices Straight Cane Feeding Ability Assist with Tray Set Up Lower Body Dressing Ability Maximum Assistance Upper Body Dressing Ability Moderate Assistance Bathing Ability Maximum Assistance Performing Toilet Hygiene Ability Maximum Assistance Overall Commode/Toilet Transfer Ability Moderate Assistance Commode/Toilet Transfer Assistive Raised Toilet Seat Devices Oral Care Assist Moderate Assistance Decrease in Endurance No Discharge Plan OT Discharge Plan Pt will continue to be seen for OT services while at [facility]. Upon discharge, pt would benefit most from short term rehab placement at [facility] for continued skilled therapy. Continued skilled therapy would be most beneficial in order to improve strength, safety, endurance, ADL independence, and functional transfers to reach PLOF. Pt agreeable with this plan at this time. Eval Complexity Eval Charge Codes 75820 - Moderate Complexity PHYSICIAN CERTIFICATION: I certify the specified therapy services for Kleber Altamirano are required, authorized, and reviewed every 30 days.
[2024-03-11] MEDS: HYDROCODONE/APAP 5/325 MG TABLET 1 TAB PO (11:32)
--- NOTE | 2024-03-11 12:08 | CARE MANAGER ---
Current Medications Hydrocodone Bitart/Acetaminophen (Hydrocodone/Apap 5/325 Mg Tablet) 1 tab PO Q6HP PRN PRN Reason: Moderate to Severe Pain (4-10) Stop: 04/10/24 11:13 Last Admin: 03/11/24 11:32 Dose: 1 tab Amantadine HCl (Amantadine 100mg Capsule) 100 mg PO BID [facility] Stop: 04/09/24 20:59 Last Admin: 03/11/24 08:04 Dose: 100 mg Atorvastatin Calcium (Atorvastatin 40mg Tablet) 40 mg PO HS [facility] Stop: 04/09/24 20:59 Last Admin: 03/10/24 20:08 Dose: 40 mg Carbidopa/Levodopa (Carbidopa/Levodopa 25/100mg Tablet) 2 each PO TID [facility]IS[facility] Stop: 04/10/24 08:59 Last Admin: 03/11/24 08:04 Dose: 2 each Carbidopa/Levodopa (Carbidopa/Levodopa Cr 50/200mg Tablet) 1 each PO TID GISEL Stop: 04/09/24 20:59 Last Admin: 03/11/24 08:04 Dose: 1 each Donepezil HCl (Donepezil 10mg Tab) 10 mg PO HS [facility] Stop: 04/09/24 20:59 Last Admin: 03/10/24 20:07 Dose: 10 mg Lactated Ringer's (Lactated Ringer's 1000 Ml Bag) 1,000 mls @ 100 mls/hr IV .Q10H [facility] Stop: 04/09/24 10:59 Last Admin: 03/11/24 07:58 Dose: Not Given Non-Formulary Medication (Diclofenac Sodium) 75 mg PO BID [facility] Stop: 04/09/24 20:59 Last Admin: 03/10/24 20:10 Dose: Not Given Non-Formulary Medication (Entacapone) 200 mg PO TID GISEL Stop: 04/09/24 20:59 Last Admin: 03/10/24 20:10 Dose: Not Given Propranolol HCl (Propranolol 20mg Tab) 10 mg PO BID [facility] Stop: 04/10/24 08:59 Last Admin: 03/11/24 08:04 Dose: 10 mg Sertraline HCl (Sertraline 50mg Tablet) 50 mg PO DAILY [facility] Stop: 04/10/24 08:59 Last Admin: 03/11/24 08:04 Dose: 50 mg Sodium Chloride (Sodium Chloride 0.9% 10ml Flush Syringe) 10 ml IV NEEDED PRN PRN Reason: Maintain IV Site Stop: 04/09/24 10:59 Laboratory Tests 03/11/24 06:17 WBC 9.1 RBC 4.30 L Hgb 14.7 Hct 45.8 MCV 106.6 H MCH 34.2 H MCHC 32.0 RDW 13.1 Plt Count 173 MPV 9.7 Neut % (Auto) 89.3 H Lymph % (Auto) 7.6 L [place] % (Auto) 2.9 Eos % (Auto) 0.0 L Baso % (Auto) 0.1 Neut # (Auto) 8.1 H Lymph # (Auto) 0.7 [place] # (Auto) 0.3 Eos # (Auto) 0.0 Baso # (Auto) 0.0 Total Counted 100 Neutrophils % (Manual) 93 H Lymphocytes % (Manual) 4 L Monocytes % (Manual) 3 Platelet Estimate Normal Macrocytosis 2+ Sodium 139 Potassium 3.7 Chloride 108 H Carbon Dioxide 26 Anion Gap 8.7 BUN 16 Creatinine 0.70 Estimated Creat Clear 102 Estimated GFR 113 Est GFR ( Amer) 137 Glucose 139 H Calcium 9.0 Magnesium 2.0 Total Bilirubin 0.7 AST 23 ALT 17 Alkaline Phosphatase 124 Total Protein 6.7 Albumin 3.7 Globulin 3.0 Albumin/Globulin Ratio 1.2
--- NOTE | 2024-03-11 12:38 | P.PN_ITS ---
Subjective *Date: 03/11/24 *Time: 12:38 Interval history: Patient stable on room air. Pain doing well on rounds. Improvement in movement and sensation in left hand. Required significant assistance to get to bedside chair. Afebrile. Medical Exam Vital signs and Labs for Last 24 Hours: Vital Signs Temp Pulse Resp BP Pulse Ox O2 Del Method O2 Flow Rate 03/11/24 17:00 Room Air 03/11/24 15:44 98.0 F 71 18 118/62 95 Room Air 03/11/24 15:00 Room Air 03/11/24 13:00 Room Air 03/11/24 11:00 Room Air 03/11/24 09:00 Room Air 03/11/24 08:26 16 03/11/24 08:00 97.6 F 92 H 18 148/80 H 98 Room Air 03/11/24 08:00 Room Air 03/11/24 06:33 Room Air 03/11/24 04:58 Nasal Cannula 2 03/11/24 04:00 97.7 F 67 18 123/70 96 Nasal Cannula 2 03/11/24 03:00 Room Air 03/11/24 01:00 Room Air 03/11/24 01:00 98.2 F 66 16 108/59 L 97 Room Air 03/11/24 00:00 98.2 F 77 16 102/65 L 95 Room Air 03/10/24 23:00 78 16 121/70 93 L Room Air 03/10/24 23:00 Room Air 03/10/24 22:00 98.4 F 78 16 104/68 L 92 L Room Air 03/10/24 21:00 Room Air 03/10/24 21:00 82 18 119/65 94 L Room Air 03/10/24 20:30 98.2 F 90 18 125/75 96 Room Air 03/10/24 20:00 96 Room Air 03/10/24 20:00 98.4 F 84 16 110/74 93 L Room Air 03/10/24 19:30 98.2 F 90 16 119/71 94 L Room Air 03/10/24 19:00 88 16 130/73 94 L Room Air 03/10/24 18:45 89 18 136/87 93 L Room Air Intake and Output 03/11/24 03/11/24 03/11/24 07:59 15:59 23:59 Intake Total 1039 / 2459 880 / 2459 540 / 2459 Output Total 200 / 201 Balance 1038 / 2258 680 / 2258 540 / 2258 Intake: Intake, Oral Amount 240 / 1560 780 / 1560 540 / 1560 Intake, Total IV Amount 799 / 899 100 / 899 Lactated Ringers 1000ML 1,000 799 / 899 100 / 899 ml @ 100 mls/hr IV .Q10H [facility] Rx #:[id number] Output: Output, Urine Amount 200 / 201 Other: Number of Unmeasured Voids 1 1 Number of Bowel Movements 1 Weight 97.749 kg Patient Weight 03/11/24 23:59 Weight 97.749 kg Laboratory Results - last 24 hr 03/11/24 06:17: WBC 9.1, RBC 4.30 L, Hgb 14.7, Hct 45.8, MCV 106.6 H, MCH 34.2 H , MCHC 32.0, RDW 13.1, Plt Count 173, MPV 9.7, Neut % (Auto) 89.3 H, Lymph % (Auto) 7.6 L, [place] % (Auto) 2.9, Eos % (Auto) 0.0 L, Baso % (Auto) 0.1, Neut # (Auto) 8.1 H, Lymph # (Auto) 0.7, [place] # (Auto) 0.3, Eos # (Auto) 0.0, Baso # (Auto) 0.0, Total Counted 100, Neutrophils % (Manual) 93 H, Lymphocytes % (Manual) 4 L, Monocytes % (Manual) 3, Platelet Estimate Normal, Macrocytosis 2+, Sodium 139, Potassium 3.7, Chloride 108 H, Carbon Dioxide 26, Anion Gap 8.7, BUN 16, Creatinine 0.70, Estimated Creat Clear 102, Estimated GFR 113, Est GFR ( Amer) 137, Glucose 139 H, Calcium 9.0, Magnesium 2.0, Total Bilirubin 0.7, AST 23, ALT 17, Alkaline Phosphatase 124, Total Protein 6.7, Albumin 3.7, Globulin 3.0, Albumin/Globulin Ratio 1.2 I & O for Labs for Last 24 Hours: Intake & Output 03/08/24 03/09/24 03/10/24 03/11/24 23:59 23:59 23:59 23:59 Intake Total 1500 / 2147 2459 / 2459 Output Total 150 / 150 201 / 201 Balance 1349 2258 / 2258 Weight 104.3 kg 97.749 kg Constitutional: Present no acute distress, obese, chronically ill appearing and cooperative Head: Present atraumatic and normocephalic ENT: Present normal exam Neck: Present normal inspection Respiratory: Present normal respiratory effort; Absent rhonchi, wheezes or crackles Cardiac: Present Reg Rate and Rhythm GI: Present soft and normal bowel sounds; Absent distention or tenderness Extremities: Present normal inspection Comment:: Left arm in sling, neurovascularly intact in fingers. Mild tremor in right hand Skin: Present intact; Absent erythema Neuro: Present Grossly Intact, alert, awake, oriented x 3 and moves all extremities Comment:: Mild tremor in right hand; masked facies Assessment and Plan *Assessment and plan (1) Parkinson's Disease: Problem Comment: Currently on carbidopa/levodopa 25/100, 2 tablet p.o. 3 times daily and carbidopa/levodopa CR 50/200, 1 tablet 3 times daily. Rytary was discontinued due to cost. Comtan 200 mg po tid with symptomatic improvement but mild dyskinesias and doing better w/o evidence of dyskinesia after he was started on amantadine 100 mg twice daily. Status: Chronic Qualifiers: Dyskinesia presence: with dyskinesia Fluctuating manifestations: without fluctuating manifestations Qualified Code(s): G20.B1 - Parkinson's disease with dyskinesia, without mention of fluctuations Category: Medical Code(s): G20 - Parkinson's disease (2) Distal radius fracture, left: Problem Comment: Status post ORIF left distal radius Status: Acute Qualifiers: Encounter type: initial encounter Fracture type: closed Fracture morphology: Colles' Qualified Code(s): S52.532A - Colles' fracture of left radius, initial encounter for closed fracture Category: Medical Code(s): S52.502A - Unspecified fracture of the lower end of left radius, initial encount er for closed fracture (3) Memory loss: Problem Comment: Memory loss currently on donezepil 10 mg p.o. nightly. Differential gnosis includes: MCI with memory loss versus subcortical dementia of Lewy body. Denies parasomnias, REM behavior disorder, hallucinations. Status: Chronic Category: Medical Code(s): R41.3 - Other amnesia (4) Hyperlipidemia: Status: Acute Category: Medical Code(s): E78.5 - Hyperlipidemia, unspecified (5) Arthritis: Status: Acute Category: Medical Code(s): M19.90 - Unspecified osteoarthritis, unspecified site Plan 63-year-old male who presented for removal of feeling hardware from left distal wrist. History of Parkinson's, multiple falls. Surgery tolerated well. Discussed case with orthopedics team, request admission for monitoring overnight and assistance with rehab/placement. Agreed to admit for further evaluation and management. Problems addressed as follows: Distal radial fracture left forearm Failed volar plate hardware -Hardware removed 03/10. Procedure tolerated well. Nerve block worn off, pain stable. -Hydrocodone 5 mg as needed every 6 hours for severe breakthrough pain. -PT and OT evaluated, recommend skilled placement. After discussion with sister and patient, he is amenable to skilled rehab. Case management assisting with referral. - Patient having progressive weakness and increased falls, concerned about his safety and stability to go home by himself. -Hemoglobin stable at 14.7. Remainder of labs normal with normal kidney function and electrolytes. Lab holiday in the morning. Parkinson's disease: -Continue short acting carbidopa-levodopa 2 tabs orally 3 times a day; and long- acting 3 times a day -Continue entacapone 200 mg 3 times a day Memory loss: -Continue amantadine 100 mg twice daily -Continue donepezil 10 mg nightly Zoloft for depression 50 mg daily Full code Regular diet
[2024-03-11] MEDS: ENTACAPONE 200 MG 200 EACH PO ×2 (14:53→20:54)
--- NOTE | 2024-03-11 15:51 | CARE MANAGER ---
Addendum entered by Preethi Azar RN 03/12/24 10:15: Plan is for discharge to [facility] today once auth is obtained from insurance. Original Note: Per PT/OT patient would benefit with STR. Patient Choice signed for [place], [place] (no male bed), [place] (does not accept insurance), [facility] (unable to meet needs), [facility] and [facility]. [facility] has accepted the patient and started pre-cert. Patient and family aware and plan is for discharge to [facility] for STR tomorrow.
--- NOTE | 2024-03-11 17:33 | PC.NURSE ---
Pt has been up to the chair this shift. Has tolerated well. Has c/o discomfort x1 this shift. Medicated per nov. Has used urinal to void. No BM. VSS New IV #22 to (R) wrist. Family has visited today. Call light within reach.
[2024-03-11] MEDS: PAT OWN MED ***DONEPEZIL 10MG 10 MG PO (20:55)
[2024-03-11] MEDS: PROPRANOLOL 10 MG 1 EACH PO (20:55)
[2024-03-11] MEDS: LEVODOPA PO ×2 (20:55→20:56)
[2024-03-11] MEDS: CARBIDOPA PO ×2 (20:55→20:56)
[2024-03-11] MEDS: PAT OWN MED ***ATORVASTATIN 40MG 40 MG PO (20:56)
[2024-03-11] MEDS: AMANTADINE 100 MG PO (20:56)
[2024-03-11] MEDS: DICLOFENAC SODIUM 75 MG 75 EACH PO (20:57)
[2024-03-12] MEDS: LACTATED RINGERS 1000ML 1,000 ML 100 ML IV (00:23)
[2024-03-12 04:00] VITALS: BP 105/61; PULSE 60; RESP 16; TEMP 36.4; O2SAT 97; BMI 32.5
--- NOTE | 2024-03-12 05:41 | PC.NURSE ---
Pt is alert and oriented x3 and cuerrently tolerating Ra well. Pt has had no complaints this shift and remains in shoulder sling. there have been to acute changes to note
[2024-03-12 08:00] VITALS: BP 134/75; PULSE 72; RESP 20; TEMP 36.3; O2SAT 98
[2024-03-12] MEDS: CARBIDOPA PO ×2 (08:24→08:26)
[2024-03-12] MEDS: SERTRALINE 50 MG PO (08:24)
[2024-03-12] MEDS: LEVODOPA PO ×2 (08:24→08:26)
[2024-03-12] MEDS: DICLOFENAC SODIUM 75 MG 75 EACH PO (08:25)
[2024-03-12] MEDS: AMANTADINE 100 MG PO (08:25)
[2024-03-12] MEDS: ENTACAPONE 200 MG 200 EACH PO (08:25)
[2024-03-12] MEDS: PROPRANOLOL 10 MG 1 EACH PO (08:26)
[2024-03-12] MEDS: ACETAMINOPHEN 325MG TAB 650 MG PO (09:28)
--- NOTE | 2024-03-12 10:51 | EXP.DC.SUM ---
General Admission date:: 03/10/24 Discharge date: 03/12/24 HPI HPI HPI: Mr. Altamirano is a 63-year-old gentleman with Parkinson's disease who has experienced multiple falls over the past few months. Approximately 5 weeks ago he fell and broke his left wrist. It was repaired with open reduction and internal fixation with volar plating. Unfortunately he has had multiple falls during the healing, and sustained failure of his hardware. Due to falls from his Parkinson's, had failure of hardware and prominence of the distal locking screw which needed to be removed. Presented today for elective removal of implants including deep volar plate with screws. Patient tolerated procedure well. Unfortunately, unable to discharge home safely as he has no one to stay with him and lives by himself in an independent living setting. Medicine was consulted for admission and therapy evaluation to assist with safe dispo home. Patient's sister at bedside, and states of discussion about goals of care plan. Patient has been having progression of his disease. Plan was for him to move in with her after building a new house, but this plan has been delayed due to construction difficulties. Patient currently gets around with walker and cane. He gets assistance where he lives with assistance of food. Takes extensive medication for his Parkinson's daily. Currently had some nerve block of left upper extremity to assist with pain control. Unfortunately that means he cannot use his left arm. Patient stable on room air. Denies any chest pain or shortness of breath. Hospital Course Hospital Course Hospital Course: 63-year-old male who presented for removal of feeling hardware from left distal wrist. History of Parkinson's, multiple falls. Surgery tolerated well. Discussed case with orthopedics team, request admission for monitoring overnight and assistance with rehab/placement. Patient stable during admission. Evaluated by therapy, would benefit from skilled rehab. Has graciously been accepted by [facility] for further management. Problems addressed as follows: Distal radial fracture left forearm Failed volar plate hardware -Hardware removed 03/10. Patient tolerated procedure well. Nerve block performed for pain control during procedure. Pain has been well-controlled tolerating minimal pain medication, only had Tylenol in the past 24 hours. PT and OT evaluated, recommended skilled rehab given patient's Parkinson's and inability to use his left arm. Will transition care to [facility] in [place] for further management. Patient does have progressive weakness and increased falls due to his Parkinson's. Parkinson's disease: -Progressive, complicating all aspects of his care. Continue home medications per med rec. Usually gets around using a cane or a walker. Memory loss: -Continue amantadine 100 mg twice daily and donepezil 10 mg nightly Zoloft for depression 50 mg daily Total time spent on discharge 32 minutes in counseling, documentation, chart review, and direct care with patient. Exam Data for Last 24 hours Vital signs and Labs for Last 24 Hours: Temp Pulse Resp BP Pulse Ox O2 Del Method O2 Flow Rate 97.3 F L 72 20 134/75 98 Room Air 2 03/12/24 08:00 03/12/24 08:00 03/12/24 08:00 03/12/24 08:00 03/12/24 08:00 03/12/24 08:00 03/11/24 04:58 I & O for Last 24 hours: Intake & Output 03/09/24 03/10/24 03/11/24 03/12/24 23:59 23:59 23:59 23:59 Intake Total 1500 / 2147 2459 / 3079 1100 / 1100 Output Total 150 / 150 451 / 701 675 / 675 Balance 0 / 1996 425 / 425 Weight 104.3 kg 97.749 kg 99.518 kg Constitutional Constitutional: no acute distress, obese, chronically ill appearing and cooperative *Routine HEENT Exam Head: Present normocephalic Eye: Present EOMI and PERRL ENT: Present mucous membranes moist *Routine Neck Exam Neck: Present supple; Absent lymphadenopathy *Routine Respiratory Exam Respiratory: Present CTA bilaterally; Absent rhonchi, wheezes or crackles *Routine Cardiovascular Exam Cardiovascular: Present RRR *Routine Abdominal Exam Abdominal: Present soft and normoactive bowel sounds; Absent tenderness *Routine Rectal Exam Patient deferred: visual exam *Routine Exam Patient deferred: penile exam *Routine Extremities Exam Extremities: Absent cyanosis, clubbing or edema Comments: Left arm remains in sling and brace. *Routine Skin Exam Skin: Present intact and warm; Absent cyanosis, erythema or rash *Routine Neurological Exam Neurological: Present alert, oriented X3, abnormal gait, moving all extremities and normal speech Comments: Masked facies, mild tremor right arm DS: Diagnosis Discharge Diagnosis (1) Parkinson's Disease: Status: Chronic Code(s): G20 - Parkinson's disease Qualifiers: Dyskinesia presence: with dyskinesia Fluctuating manifestations: without fluctuating manifestations Qualified Code(s): G20.B1 - Parkinson's disease with dyskinesia, without mention of fluctuations Problem details: Currently on carbidopa/levodopa 25/100, 2 tablet p.o. 3 times daily and carbidopa/levodopa CR 50/200, 1 tablet 3 times daily. Rytary was discontinued due to cost. Comtan 200 mg po tid with symptomatic improvement but mild dyskinesias and doing better w/o evidence of dyskinesia after he was started on amantadine 100 mg twice daily. (2) Distal radius fracture, left: Status: Acute Code(s): S52.502A - Unspecified fracture of the lower end of left radius, initial encounter for closed fracture Qualifiers: Encounter type: initial encounter Fracture morphology: Colles' Fracture type: closed Qualified Code(s): S52.532A - Colles' fracture of left radius, initial encounter for closed fracture Problem details: Status post ORIF left distal radius (3) Memory loss: Status: Chronic Code(s): R41.3 - Other amnesia Problem details: Memory loss currently on donezepil 10 mg p.o. nightly. Differential gnosis includes: MCI with memory loss versus subcortical dementia of Lewy body. Denies parasomnias, REM behavior disorder, hallucinations. (4) Hyperlipidemia: Status: Acute Code(s): E78.5 - Hyperlipidemia, unspecified (5) Arthritis: Status: Acute Code(s): M19.90 - Unspecified osteoarthritis, unspecified site Meds Home Medications and Allergies Home Medications Medication Instructions Recorded Confirmed Type atorvastatin 40 mg tablet 40 mg PO HS 01/22/23 03/10/24 History cholecalciferol (vitamin D3) 25 25 mcg PO DAILY 01/22/23 03/10/24 History mcg (1,000 unit) capsule cyanocobalamin (vitamin B-12) 1,000 mcg PO DAILY 01/22/23 03/10/24 History 1,000 mcg capsule diclofenac sodium 75 mg 75 mg PO BID 01/22/23 03/10/24 History tablet,delayed release donepezil 10 mg tablet (Aricept) 10 mg PO HS 01/22/23 03/10/24 History propranolol 10 mg tablet 10 mg PO BID 01/22/23 03/10/24 History sertraline 50 mg tablet (Zoloft) 50 mg PO DAILY 01/22/23 03/10/24 History carbidopa ER 50 mg-levodopa 200 mg 1 tab PO TID #90 tabs 11/25/23 03/10/24 Rx tablet,extended release entacapone 200 mg tablet 200 mg PO TID #90 tabs 11/25/23 03/10/24 Rx amantadine HCl 100 mg capsule 100 mg PO BID #60 caps 12/01/23 03/10/24 Rx carbidopa 25 mg-levodopa 100 mg 2 tab PO TID 02/02/24 03/11/24 History tablet acetaminophen 325 mg tablet 650 mg (2 x 325 mg) PO Q4HP PRN 03/12/24 Rx Fever Or Mild Pain (1-3) #0 tabs New Prescriptions to Start Prescriptions: Allergies Allergy/AdvReac Type Severity Reaction Status Date / Time No Known Allergies Allergy Verified 03/10/24 11:10 Discharge Plan Disposition Patient Disposition: [facility] Condition: Fair Discharge Order Discharge Orders: Discharge Order (Routine); Ordered 03/12/24 Ordered By: Bandar Mehta Follow up Plan Follow up with: Lyndon Franco DO [Staff Physician] - 03/30/24 11:00 am Prescriptions/Medication Reconciliation: New acetaminophen 325 mg Tablet 650 mg PO Q4HP PRN (Reason: Fever Or Mild Pain (1-3)) Qty: 0 0RF Continued amantadine HCl 100 mg capsule 100 mg PO BID Qty: 60 5RF carbidopa-levodopa 25-100 mg tablet 2 tab PO TID Rx Instructions: 2 tabs orally 3 times a day donepezil [Aricept] 10 mg tablet 10 mg PO HS atorvastatin 40 mg tablet 40 mg PO HS cholecalciferol (vitamin D3) 25 mcg (1,000 unit) capsule 25 mcg PO DAILY cyanocobalamin (vitamin B-12) 1,000 mcg capsule 1,000 mcg PO DAILY diclofenac sodium 75 mg tablet,delayed release (DR/EC) 75 mg PO BID propranolol 10 mg tablet 10 mg PO BID sertraline [Zoloft] 50 mg tablet 50 mg PO DAILY carbidopa-levodopa 50-200 mg tablet extended release 1 tab PO TID Qty: 90 12RF entacapone 200 mg tablet 200 mg PO TID Qty: 90 11RF Discontinued oxycodone-acetaminophen 5-325 mg tablet 1 tab PO Q4H PRN (Reason: Postop pain) Qty: 30 0RF Problem Reconciliation Problems Reviewed?: Yes Patient Discharge Instructions ACTIVITY: Ambulate as tolerated DIET: advance to your usual diet Additional Instructions: Keep splint clean dry and intact until follow-up. Return to clinic follow-up 2 weeks. Use sling left upper extremity. Ice and elevate left upper extremity Patient Instructions: How to Prevent Falls, DI for Surgical Site Infection, Surgical Site Infection Providers Primary Care Provider: Neelam Winslow Admit Provider: Bandar Mehta Attending Provider: Bandar Mehta
== END 2024-03-12 12:30 ==
LOC: 2ND 17:37
PROVIDERS: Orthopaedic Surgery; Admitting Provider Internal Medicine Adolescent Medicine; PCP Nurse Practitioner Family; Visit Provider Internal Medicine Adolescent Medicine
PROC: (CPT 20680; principal; 2024-03-10 12:15)
DX: S52.532A Colles' fracture of left radius, initial encounter for closed fracture (principal); T84.123A Displacement of internal fixation device of bone of left forearm, initial encounter; G20.B1 Parkinson's disease with dyskinesia, without mention of fluctuations; R41.3 Other amnesia; E78.5 Hyperlipidemia, unspecified; M19.90 Unspecified osteoarthritis, unspecified site; Z79.899 Other long term (current) drug therapy; R29.6 Repeated falls
CPT/HCPCS: 20680; 36415; 73100; 80053; 83735; 85007; 85025; 96374; 97110; 97162; 97166; 97530; G0378; J0690; J1885; J2250; J2405; J3010; J7120

== ENCOUNTER 2024-04-01 12:53 | Outpatient (CLI) | payer MEDICARE, SELFPAY ==
--- NOTE | 2024-04-01 12:56 | XR_ITS ---
FINAL REPORT CLINICAL HISTORY: lt wrist pain COMPARISON: 03/01/2024 FINDINGS: LEFT WRIST Three views demonstrate a cast. In the interval since the prior film of the March 01 the orthopedic plate and screws have been removed. There is worsening proximal and radial displacement of the radial fracture fragments of multiple of these fragments. Mild and moderate degenerative change is present as well. The soft tissues are unremarkable. IMPRESSION: Since the prior exam of March 01, the orthopedic plate and screws have been removed and the patient is in a cast. There is worsening proximal and radial displacement of the radial fracture fragments as described. Reviewed, Interpreted and Dictated by Dawit Hanley III, MD Transcribed by Lu Mitchell Authenticated and . [facility]
== END 2024-04-01 23:59 | disposition home or self-care (01) ==
LOC: RAD 12:54
PROVIDERS: PCP Nurse Practitioner Family; Visit Provider Orthopaedic Surgery
DX: S52.532A Colles' fracture of left radius, initial encounter for closed fracture (principal); M25.532 Pain in left wrist
CPT/HCPCS: 73110

== ENCOUNTER 2024-05-06 12:45 | Outpatient (CLI) | payer MEDICARE, SELFPAY ==
--- NOTE | 2024-05-06 12:58 | XR_ITS ---
FINAL REPORT CLINICAL HISTORY: wrist fracture f/u COMPARISON: 04/01/2024 FINDINGS: Left wrist Three views were obtained. There is a comminuted subacute to chronic fracture of the distal radius with impaction of the fracture fragments. There are postoperative changes in the distal radius. There is increased callus formation since the prior. Overall, the bony alignment is unchanged. There is soft tissue swelling. IMPRESSION: Fracture as above. Reviewed, Interpreted and Dictated by Dawit Hanley III, MD Transcribed by Delilah Reynolds Authenticated and [facility]
== END 2024-05-06 23:59 | disposition home or self-care (01) ==
LOC: RAD 12:46
PROVIDERS: PCP Nurse Practitioner Family; Visit Provider Orthopaedic Surgery
DX: S52.532A Colles' fracture of left radius, initial encounter for closed fracture (principal)
CPT/HCPCS: 73110

== ENCOUNTER 2024-06-29 10:00 | Outpatient (RCR) | payer MEDICARE, SELFPAY ==
--- NOTE | 2024-04-12 14:52 | HMH.OTOPEV ---
OT Inpatient Evaluation Rehab OT Outpatient Eval Start: 04/12/24 14:35 Freq: Status: Active Protocol: Document 04/12/24 14:35 [facility] (Rec: 04/12/24 14:52 [facility] [id number]) E-signed By Hiram Aragon, OT Outpatient Therapy Subjective History Subjective History Pt is a 63 year old male who reports to therapy for initial evaluation to left wrist. Pt had a fall while standing up from his table at home resulting in a left distal radius fx. Pt initially had a ORIF following fx, but required a another surgery on 03/10/24 due to failed hardware after having another fall at home; left wrist status post fall after previous open reduction internal fixation with volar plating. Pt normally lives alone and claims to be independent with most ADLs. Pt lives in a personal care apartment at [place]. Pt does use a walker and/or cane during functional transfers. Pt is right hand dominant. Pt also reports a history of diagnosis of Parkinson's disease. Pt explains an increased difficulty with balance and gait. He has a Physical therapy evaluation scheduled to address this issue. Pt demonstrates with decreased AROM, strength, and drug safety physician strength at L wrist/hand. Pt will continue to be seen in order to address all deficits. STG L hand drug safety physician strength: 12 lbs LTG L hand drug safety physician strength: 15 lbs New diagnosis of cancer in past 12 No months? Chief Complaint Pain,Stiff,Swelling,Weakness, Decreased Registered Radiographer Strength Symptom Type Ache,Throb,Sharp,Dull Symptoms Relieved By Rest/Positioning Symptoms Aggravated By Physical Activity,Lifting Prior Functional Limitations None Current Functional Limitations Reaching,Lifting,Housework, Dressing,Sleeping Symptom Description Intermittent,Activity Dependent Level of pain today (0-10) 0 Pain scale - at its best (0-10) 0 Pain scale - at its worst (0-10) 2 Wrist/Hand Eval Wrist Range of Motion Left Wrist Extension Active Range of Motion ( 20 degrees degrees) Wrist Flexion Active Range of Motion ( 55 degrees degrees) Wrist Radial Deviation Active Range of 30 degrees Motion (degrees) Wrist Ulnar Deviation Active Range of 30 degrees Motion (degrees) Forearm Supination Active Range of 80 degrees Motion (degrees) Forearm Pronation Active Range of Motion 90 degrees (degrees) Wrist Manual Muscle Testing Left Wrist Extension Strength Grade 3 Fair Wrist Flexion Strength Grade 3 Fair Wrist Radial Deviation Strength Grade 3 Fair Wrist Ulnar Deviation Strength Grade 3 Fair Forearm Supination Strength Grade 3 Fair Forearm Pronation Strength Grade 3 Fair Registered Radiographer/Pinch Strength Right Registered Radiographer Strength Measurement (lbs) 20 Left Registered Radiographer Strength Measurement (lbs) 8 QuickDA Activities Please rate your ability to do the following activities in the last week by selecting the number below the appropriate response. 1. Open a tight or new jar. Unable 2. Do heavy senior applications engineer (e.g., wash Unable aponte, floors). 3. Carry a shopping bag or briefcase. No difficulty 4. Wash your back. Unable 5. Use a knife to cut food. Moderate difficulty 6. Recreational activities in which you Unable take some force or impact through your arm, shoulder, or hand (e.g., golf, hammering, tennis, etc.). 7. During the past week, to what extent Not at all has your arm, shoulder or hand problem interfered with your normal social activities with family, friends, neighbors or groups? 8. During the past week, were you Moderately limited limited in your work or other regular daily activites as a result of your arm, shoulder or hand problem? 9. Arm, shoulder or hand pain. None 10. Tingling (pins and needles) in your None arm, shoulder or hand. 11. During the past week, how much Mild difficulty difficulty have you had sleeping because of the pain in your arm, shoulder or hand? Quick DASH 32 OT Outpatient Assessment Impairments Problems/Impairments Palpation Tenderness,Impaired Range of Motion,Impaired Strength,Impaired Endurance, Impaired Lifting,Impaired Household Care,Impaired Recreational Activities, Subjective C/O Pain Prognosis Rehab Potential Good Clinical Impression Consistent with Diagnosis Yes Short Term Goals Number of Weeks 3 Increase Range of Motion Yes: Flex: 65 Ext: 40 Sup: 90 Increase Strength Yes: 3+,4-/5 throughout left wrist Increase Endurance Yes: Pt will tolerate L wrist exercises for ~15 minutes prior to rest. Decrease Subjective C/O Pain Yes: 1/10 at worst Patient to be Ind w/ HEP Yes: AROM, AAROM exercises at left wrist; yellow theraputty Improve Quick Dash Score Yes: Activities: 35 or below Area Counselor Goals Number of Weeks 6 Increase Range of Motion Yes: Flex: 70 Ext: 55 Sup: 90 degrees Increase Strength Yes: 4/5 throughout left wrist . Increase Endurance Yes: Pt will tolerate L wrist exercises for ~20 minutes prior to rest. Decrease Subjective C/O Pain Yes: 0/10 at worst Patient to be Ind w/ Advanced HEP Yes: Advanced strengthening Improve Quick Dash Score Yes: Activities: 20 or below Outpatient Therapy Plan of Care Treatment Plan May Include Therapeutic Exercise Including Home Yes Exercise Program Manual Therapy Techniques Yes Neuromuscular Re-education Yes Therapeutic Activities to Return to Yes Previous Functional/Work Level Thermal Modalities Yes Electrical Stimulation Yes Ultrasound/Phonophoresis Yes Iontophoresis Yes Massage Yes Eval/Re-Eval Yes Frequency Times per week 2 Duration Number of Weeks 6 Addendums This patient is a candidate for social No or vocational rehab? Patient/Guardian verbally acknowledges Yes understanding of treatment program and consents to further treatment? Patient/Guardian verbally acknowledges Yes understanding of diagnosis, prognosis and goals for treatment? Eval Complexity OT Charge 20765 - Moderate Complexity Shoulder/Elbow Eval Shoulder Objective Measurements Elbow Objective Measurements PHYSICIAN CERTIFICATION: I certify the specified therapy services for Kleber Altamirano are required, authorized, and reviewed every 30 days.
--- NOTE | 2024-05-10 11:03 | HMH.RHREAS ---
Rehab Reassessment Rehab OP Re-assessment Start: 04/12/24 14:35 Freq: Status: Active Protocol: Document 05/10/24 09:57 CYNTHIA (Rec: 05/10/24 11:02 CYNTHIA [id number]) E-signed By Hiram Aragon OT Rehab Re-assessment Subjective Subjective My doctor was shocked with how well it is doing. Objective Objective Notes Pt continues to be seen twice a week in order to address left wrist deficits. Each session, pt receives scar massage and PROM manual stretching to left wrist in all planes: flexion, extension , UD, RD, supination, and pronation. Pt also engages in AROM, AAROM, and strengthening exercises to left wrist. Modalities are provided in order to decrease pain/inflammation. Assessment Progress Assessment Progressing as Expected Assessment Notes Pt is very consistent about attending therapy sessions. Pt recently returned to surgeon who was pleased with patients progress considering pt's traumatic injuries. Pt reports he is able to complete all activities needed utilizing left hand. Pt reports 0/10 pain. Pt's AROM has improved slightly since initial assessment. Pt's programming internship strength has improved minimally as well. Current AROM L wrist Extension: 30 degrees Flexion: [address]: 30 degrees UD: 30 degrees Supination: 90 degrees Pronation: 90 degrees Current L hand programming internship strength: [address]-5 Goals Not Met See below Revised Goals ST and 6 LT-6 Plan Plan Continue with OT plan of care at this time Frequency of Therapy 2x's a week Duration of therapy 4 more weeks Time and Billing Re-Eval Time 11 Re-Eval Billing Units 1 PHYSICIAN CERTIFICATION: I certify the specified therapy services for Kleber Altamirano are required, authorized, and reviewed every 30 days.
== END 2024-06-29 10:05 | disposition home or self-care (01) ==
LOC: OT 10:00
PROVIDERS: Visit Provider Orthopaedic Surgery
DX: M25.532 Pain in left wrist (principal); S62.102A Fracture of unspecified carpal bone, left wrist, initial encounter for closed fracture
CPT/HCPCS: 97014; 97035; 97110; 97140; 97164; 97166; G0283

== ENCOUNTER 2024-07-29 13:00 | Outpatient (RCR) | payer MEDICARE, SELFPAY ==
--- NOTE | 2024-04-19 12:08 | HMH.PTOPEV ---
PT Outpatient Evaluation Rehab PT Outpatient Evaluation Start: 04/19/24 10:53 Freq: Status: Active Protocol: Document 04/19/24 10:53 ÁNGELA (Rec: 04/19/24 12:08 ÁNGELA [id number]) E-signed By Katlin Hayward, PT Outpatient Therapy Subjective History Subjective History Pt is a 63 y/o male who reports he was diagnosed with Parkinson's disease years ago. Pt reports 7 falls this year mostly with a posterior LOB. Pt reports he broke his left wrist a few months ago and had surgical intervention ~1 month ago. Pt is unsure of WB status of the LUE. Pt reports he uses a quad cane for all ambulation but sometimes he just carries it. Pt reports the cane seems to trip him up more than it helps him. He states he has a rollator walker but the brakes don't work well. Pt reports he lives alone at [place] in a downstairs apartment, denies having stairs to traverse. Pt reports he feels off balance with all ADLs and has difficulty performing them due to this. Pt denies freezing gait. Pt states he does take medication for Parkinson's disease but is unable to specify which medication and what time of day he takes it. 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: HLD TU with quad cane, pt tripped over cane requiring minAx1 to correct and would carry the cane at times 5x sit to stand: 13 with one instance of posterior LOB Dysdiadochokinesia testing: negative New diagnosis of cancer in past 12 No months? Lumbopelvic Eval Manual Muscle Test Bilateral Knee Extension Strength Grade 5 Normal Knee Flexion Strength Grade 5 Normal Hip Flexion Strength Grade 5 Normal Hip Abduction Strength Grade 4- Good- Hip Adduction Strength Grade 4- Good- Hip Extension Strength Grade 4- Good- Ankle Dorsiflexion Strength Grade 5 Normal Balance Eval Subjective Hx of Complaint Comment frequent falls due to LOB Current Functional Limitations Comment dressing, bathing, cooking/ cleaning due to impaired balance Hx of Falls Hx Falls Yes Number in last 6 months 7 Gait/Posture Asssessment General Gait Observation Shuffling Step,Hips Posterior to TASH Assistive Devices Straight Cane Ankle/Foot Observation in Gait Swing Decreased Foot Clearance Body Alignment Posture Rigid Timed Up and Go Test 1. Is the Timed Up and Go test result > yes or = to 12 seconds? [place] Feet Together/Eyes open/Stable Surface pass Feet Together/Eyes Closed/Stable Surface fail Feet Together/Eyes open/Unstable Surface fail Feet Together/Eyes Closed/Unstable fail Surface Outpatient Therapy Assessment Impairments Problems/Impairmments Impaired Strength,Impaired Gait Pattern,Impaired Walking, Impaired Dressing,Impaired Shower/Bathing,Impaired Household Care,Impaired Incline Stepping,Impaired Stepping on Uneven Surface, Impaired Recreational Activities,Impaired Balance, Impaired GOMES Score,Impaired TUG Time,Subjective C/O Pain, Impaired Self Care/Self Management Prognosis Rehab Potential Good Clinical Impression Consistent with Diagnosis Yes Short Term Goals Number of Weeks 3 Decrease TUG Time Yes: Improve to 15 or less with LRD to decrease fall risk Improve Self Care/Self Management Yes Patient to be Ind w/ HEP Yes Senior Care Goals Number of Weeks 6 Increase Strength Yes: Improve hip strength to 4 -4+/5 grossly to assist with function Improve Gait Pattern with Assistive Yes: safe gait mechanics with Device LRD to decrease fall risk Increase GOMES Score Yes: tandem stance firm surface without LOB to decrease fall risk Decrease TUG Time Yes: Improve TUG time to 12 or less with LRD to decrease fall risk Outpatient Therapy Plan of Care Treatment Plan May Include Therapeutic Exercise Including Home Yes Exercise Program Manual Therapy Techniques Yes Neuromuscular Re-education Yes Therapeutic Activities to Return to Yes Previous Functional/Work Level Gait Training Yes ADL/Self Care Education Yes Group Therapy for Medicare Yes Eval/Re-Eval Yes Frequency Times per week 2 Duration Number of Weeks 4-6 Addendums This patient is a candidate for social No or vocational rehab? Patient/Guardian verbally acknowledges Yes understanding of treatment program and consents to further treatment? Patient/Guardian verbally acknowledges Yes understanding of diagnosis, prognosis and goals for treatment? Eval Complexity PT Charges 91209 - Moderate Complexity Shoulder/Elbow Eval Shoulder Objective Measurements Elbow Objective Measurements PHYSICIAN CERTIFICATION: I certify the specified therapy services for Kleber Altamirano are required, authorized, and reviewed every 30 days.
--- NOTE | 2024-05-17 12:08 | HMH.RHREAS ---
Rehab Reassessment Rehab OP Re-assessment Start: 04/19/24 10:53 Freq: Status: Active Protocol: Document 05/17/24 11:11 ÁNGELA (Rec: 05/17/24 12:08 ÁNGELA [id number]) E-signed By Katlin Hayward PT Rehab Re-assessment Subjective Subjective Pt reports he feels 40% improved. Pt reports he has noticed less instances of LOB but it does still occur occasionally, denies recent falls. Pt reports he feels like most instances of LOB occur at night time such as when going to the bathroom with the lights off. Pt reports he uses his rollator walker for long distance ambulation but does not use an AD for household ambulation. Objective Objective Notes TU with rollator walker 5x sit to stand: 13 without UE support Balance: tandem stance 10 with lateral LOB requiring minAx1 from PT to correct LE MMT: hip flex 4+/5, hip abd /add 4/5, hip ext 4/5, knee ext 5/5, knee flex 5/5, ankle DF 5/5 Assessment Progress Assessment Progressing as Expected Assessment Notes Pt has attended 5 PT visits consisting of aerobic exercise , gait training, functional LE strengthening, balance/ proprioception training and postural re-education with good tolerance. Pt demonstrated improved gait with use of rollator with less instances of LOB; however, continues to demonstrate short , shuffling steps that requiring cueing to correct. Pt demonstrated improved TUG score and no change in 5x sit to stand functional outcomes measure this date. Pt did report subjective improvement in balance and denied recent falls. Overall, the pt would continue to benefit from skilled PT to further improve gait, balance, posture and LE strength to manage symptoms of Parkinson's disease and derease fall risk. Patient goals met ST LT/4 Goals Not Met TUG, balance, gait Revised Goals n/a Plan Plan Continue initial POC Frequency of Therapy 2x/week Duration of therapy 4 more weeks Time and Billing Re-Eval Time 12 Re-Eval Billing Units 1 PHYSICIAN CERTIFICATION: I certify the specified therapy services for Kleber Altamirano are required, authorized, and reviewed every 30 days.
--- NOTE | 2024-06-29 11:48 | HMH.RHREAS ---
Rehab Reassessment Rehab OP Re-assessment Start: 04/19/24 10:53 Freq: Status: Active Protocol: Document 06/29/24 10:44 ÁNGELA (Rec: 06/29/24 11:48 ÁNGELA [id number]) E-signed By Katlin Hayward PT Rehab Re-assessment Subjective Subjective Pt reports he has not attended PT in 27 days due to relying on others for transportation. Pt reports he has fallen 3 times within this time frame with the last fall occurring 2 weeks ago. Pt reports he landed on his back and tapped his head on the floor, denies going to the ED or injuries/pain from the fall. Pt reports he was not using his rollator walker when he fell, states falls usually occurs when he trips over something. Pt reports he is only dizzy when he first gets up in the morning. Objective Objective Notes TU with rollator walker 5x sit to stand: 14 without UE support Balance: tandem stance 8 with lateral LOB requiring minAx1 from PT to correct LE MMT: hip flex 4+/5, hip abd /add 4/5, hip ext 4/5, knee ext 5/5, knee flex 5/5, ankle DF 5/5 Assessment Assessment Notes Pt has attended 8 PT visits consisting of aerobic exercise , gait training, functional LE strengthening, balance/ proprioception training and postural re-education with good tolerance. Pt has been unable to attend PT in 27 days due to relying on othersfor transportation therefore limiting progress since the previous reassessment. Pt continues to demonstrate increased gait speed with rollator walker requiring cues for slow, controlled movements. Discussed use of front wheeled walker vs rollator to improve safety and decrease fall risk. Overall, the pt would continue to benefit from skilled PT to further improve gait, balance, posture and LE strength to manage symptoms of Parkinson's disease and decrease fall risk. Patient goals met LT/ Goals Not Met TUG, balance, gait Revised Goals n/a Plan Plan Continue initial POC Frequency of Therapy 2x/week Duration of therapy 4 more weeks Time and Billing Re-Eval Time 12 Re-Eval Billing Units 1 PHYSICIAN CERTIFICATION: I certify the specified therapy services for Kleber Altamirano are required, authorized, and reviewed every 30 days.
--- NOTE | 2024-07-29 13:43 | HMH.RHREAS ---
Rehab Reassessment Rehab OP Re-assessment Start: 04/19/24 10:53 Freq: Status: Active Protocol: Document 07/29/24 13:20 [email or web address] (Rec: 07/29/24 13:43 ADEBRETT [id number]) E-signed By Katlin Hayward PT Rehab Re-assessment Subjective Subjective Pt reports his balance and strength feels about the same overall since his last reassessment. Pt denies recent falls, states he is using his rollator walker for all community ambulation. Pt reports sometimes he doesn't use it for household ambulation although he feels unsteady without it. Pt reports he has been performing some leg exercises at home but is not compliant with his HEP. Objective Objective Notes TU with rollator walker 5x sit to stand: 11 without UE support Balance: tandem stance 20 with self-corrected lateral LOB LE MMT: 01/24 grossly Assessment Assessment Notes Pt has attended 15 PT treatment session since his initial evaluation consisting of aerobic exercise, LE strengthening, balance/ proprioception training, postural re-education and LSVT BIG exercises. Pt demonstrated improved TUG and 5x sit to stand functional outcomes this date compared to the previous reassessment. Pt demonstrated safe gait with rollator walker with occasional required cueing to decrease gait speed for safety . Overall, the pt met all PT goals and is appropriate to discharge to independent [facility]. Pt educated on and encouraged to participate in Parkinson's focused exercises classes provided at [facility] to continue upon discharge. Patient goals met LT/4 Goals Not Met n/a Revised Goals n/a Plan Plan Discharge to independent HEP Time and Billing Re-Eval Time 12 Re-Eval Billing Units 0 Charge for PT reassessment? No Charge for OT reassessment? No PHYSICIAN CERTIFICATION: I certify the specified therapy services for Kleber Altamirano are required, authorized, and reviewed every 30 days.
== END 2024-07-29 23:59 | disposition home or self-care (01) ==
LOC: PT 13:00
PROVIDERS: Visit Provider Orthopaedic Surgery
DX: G20.A1 Parkinson's disease without dyskinesia, without mention of fluctuations (principal)
CPT/HCPCS: 97110; 97163; 97164; 97530

== ENCOUNTER 2024-08-13 10:19 | Emergency (ER) | payer MEDICARE, SELFPAY ==
--- NOTE | 2024-08-13 10:36 | XR_ITS ---
PROCEDURE INFORMATION: Exam: XR Left Humerus Exam date and time: 08/13/2024 10:41 AM Age: 63 years old Clinical indication: Injury or trauma; Fall; Blunt trauma (contusions or hematomas); Arm, upper; Left TECHNIQUE: Imaging protocol: Radiologic exam of the left humerus. Views: 2 or more views. COMPARISON: CR XR SHOULDER LT MIN 2V 08/13/2024 10:38 AM FINDINGS: Bones/joints: Normal. Soft tissues: Normal. IMPRESSION: No acute findings.
--- NOTE | 2024-08-13 10:36 | XR_ITS ---
PROCEDURE INFORMATION: Exam: XR Left Shoulder Exam date and time: 08/13/2024 10:38 AM Age: 63 years old Clinical indication: Injury or trauma; Fall; Blunt trauma (contusions or hematomas); Shoulder; Left TECHNIQUE: Imaging protocol: Radiologic exam of the left shoulder. Views: 2 or more views. COMPARISON: No relevant prior studies available. FINDINGS: Bones/joints: High-riding humerus. Arthrosis of the glenohumeral and acromioclavicular joints. Soft tissues: Normal. IMPRESSION: 1. High-riding humerus concerning for superior rotator cuff injury. 2. Osteoarthritis.
[2024-08-13 10:37] VITALS: BP 143/80; PULSE 76; RESP 18; TEMP 36.6; O2SAT 97; BMI 34.7
--- NOTE | 2024-08-13 10:44 | EXP.UTC ---
Discharge Plan Disposition Patient Disposition: Home, Self-Care Condition: Good Prescriptions Prescriptions: No Action donepezil [Aricept] 10 mg tablet 10 mg PO HS atorvastatin 40 mg tablet 40 mg PO HS cholecalciferol (vitamin D3) 25 mcg (1,000 unit) capsule 25 mcg PO DAILY cyanocobalamin (vitamin B-12) 1,000 mcg capsule 1,000 mcg PO DAILY sertraline [Zoloft] 50 mg tablet 50 mg PO DAILY amantadine HCl 100 mg capsule See Rx Instructions .ROUTE .COMPLEX Qty: 60 4RF Dose Instruction: TAKE 1 CAPSULE BY MOUTH TWICE A DAY Rx Instructions: TAKE 1 CAPSULE BY MOUTH TWICE A DAY carbidopa-levodopa 50-200 mg tablet extended release 1 tab PO TID Qty: 90 12RF entacapone 200 mg tablet 200 mg PO TID Qty: 90 11RF Referrals Follow up/Referrals: Lyndon Franco DO [Staff Physician] - See instructions (Call office and make appointment) Neelam Winslow APRN [Primary Care Provider] - See instructions Activity Restrictions/Add. Instructions Additional Instructions/Restrictions: *RICE, Rest the extremity, Ice 15-20 minutes 3-4 times daily, Compress- wear the bay wrap as discussed as much as possible to help reduce swelling and pain, Elevate the extremity when at rest *Sling is for support and help control swelling, use it except in the shower. Be sure that is not to tight but not to loose either *Elevate when resting? *Ibuprofen 400-600mg every 6-8 hours as needed for pain an inflammation if you can take it. If need something more or you cannot take Motrin you can take Tylenol in between doses of Ibuprofen to help Immediately follow up with your family doctor for new or worsening of symptoms, or no noticeable improvement over the next 3-5 days Clinical Impressions Clinical Impression: Fall Instructions Patient Instructions: How to Use a Sling, How To Perform RICE (Rest, Ice, Compress, Elevate), DI for Shoulder Pain Print Language Print Language: Slovak Discharge ED Provider: Clair Kulkarni [facility] [place] General Stated complaint: ao 08/13, L shoulder pain Mode of Arrival: Ambulatory Source of Information: Patient Time Seen by Provider: 08/13/24 10:45 Description of Symptoms (Recalled from Triage Doc. by RN): FELL ON LEFT SHOULDER, CAN NOT MOVE ARM UPWARDS HEENT Symptoms (Recalled from RN notes): No Resp Symptoms (Recalled from RN notes): No Skin Symptoms (Recalled from RN notes): No MS Symptoms (Recalled from RN notes): Yes Functional Status (Recalled from RN notes): UNABLE TO MOVE LEFT ARM MUCH History of Present Illness Provider Complaint: Patient states that he tripped and fell this morning at home and landed on his left shoulder and upper arm States since then he has been having pain in his shoulder and upper arm that is worse with movement and cannot raise up his arm without pain Denies hitting his head, denies any other injury Denies LOC States he has been doing rehab to help with his walking because he falls alot Related Data Home Medications ?Medication ?Instructions ?Recorded ?Confirmed atorvastatin 40 mg tablet 40 mg PO HS 01/22/23 08/13/24 cholecalciferol (vitamin D3) 25 25 mcg PO DAILY 01/22/23 08/13/24 mcg (1,000 unit) capsule cyanocobalamin (vitamin B-12) 1,000 mcg PO DAILY 01/22/23 08/13/24 1,000 mcg capsule donepezil 10 mg tablet (Aricept) 10 mg PO HS 01/22/23 08/13/24 sertraline 50 mg tablet (Zoloft) 50 mg PO DAILY 01/22/23 08/13/24 Previous Rx's ?Medication ?Instructions ?Recorded amantadine HCl 100 mg capsule See Rx Instructions .Route 08/02/24 .COMPLEX #60 caps carbidopa ER 50 mg-levodopa 200 mg 1 tab PO TID #90 tabs 08/02/24 tablet,extended release entacapone 200 mg tablet 200 mg PO TID #90 tabs 08/02/24 Allergies Allergy/AdvReac Type Severity Reaction Status Date / Time No Known Allergies Allergy Verified 08/02/24 10:56 Worker's Comp Is this a Worker's Comp case?: No [facility] Disclaimer: The information contained in this section may have been updated after the patient was seen, as this information can be updated by other users. 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 Chest pain Recurrent chest pressure in the last few weeks. Today the patient was asymptomatic. Arthritis Hyperlipidemia Memory loss Memory loss currently on donezepil 10 mg p.o. nightly. Differential gnosis includes: MCI with memory loss versus subcortical dementia of Lewy body. Denies parasomnias, REM behavior disorder, hallucinations. Surgical History History of artificial eye lens Family History Other Coronary artery disease Diabetes Hypertension Social History Smoking Status: Never smoker alcohol intake: never substance use type: denies use current occupational status: retired ROS Obtained: Yes All systems reviewed & no additional complaints except as documented and Yes Systems reviewed as appropriate & no additional complaints except as documented Constitutional Constitutional: Reports system reviewed and no additional complaints, except as documented and Reports as per HPI ENT Ears, Nose, Mouth, and Throat: Reports system reviewed and no additional complaints, except as documented and Reports as per HPI Cardiovascular Cardiovascular: Reports system reviewed and no additional complaints, except as documented and Reports as per HPI Musculoskeletal Musculoskeletal: Reports system reviewed and no additional complaints, except as documented, Reports as per HPI and Reports other Comments: Pain in left shoulder and upper arm after falling this morning and landing on his left shoulder/arm pain worse with movement denies any other injury Physical Exam General General appearance: alert and in no apparent distress Respiratory Respiratory exam: Present normal lung sounds bilaterally; Absent respiratory distress or wheezes Cardiovascular Cardiovascular exam: Present regular rate, normal rhythm and normal heart sounds Expanded Upper Extremity Exam Left: Shoulder exam: Present tenderness; Absent swelling, abrasion, laceration or ecchymosis Arm exam: Present tenderness; Absent swelling, abrasion, laceration or ecchymosis Neurological Exam Neurological exam: Present alert, oriented X3 and normal gait Medical Decision Making Medical Records Screening: Per USPSTF and CDC recommendations, given the prevalence of disease in our region, it is our hospital?s policy to screen for HIV and viral Hepatitis for all patients aged 18 and over and those with ongoing risk factors. Zafar Inquiry Pt receiving controlled substance: No Zafar was queried for this patient: No Vital Signs: 08/13/24 10:37 Temperature 97.9 F Temperature Source Oral Pulse Rate [Left Radial] 76 Respiratory Rate 18 Blood Pressure [Left Arm] 143/80 H Blood Pressure Mean [Left Arm] 101 02 Sat by Pulse Oximetry 97 Orders (Tests/Meds): ORDERS Category Date Time Status Humerus XR left [XR humerus LT] Stat Exams 08/13/24 10:36 Ordered XR shoulder LT min 2V Stat Exams 08/13/24 10:36 Ordered Radiology Data #1: Image(s): Shoulder Image Reviewed: Yes I have reviewed radiologist's interpretation IMPRESSION: 1. High-riding humerus concerning for superior rotator cuff injury. 2. Osteoarthritis. #2: Image(s): Humerus Image Reviewed: Yes I have reviewed radiologist's interpretation FINDINGS: Bones/joints: Normal. Soft tissues: Normal. IMPRESSION: No acute findings. Procedures Orthopedic Splinting/Casting Injury #1: Side: left Upper Extremity Injury Location: shoulder Upper Extremity Immobilizer: sling Post Cast/Splinting Neuro Status: intact and no change Post Cast/Splinting Vasc Status: intact and no change
[2024-08-13 11:21] VITALS: BP 143/80; PULSE 76; RESP 18; TEMP 36.6
== END 2024-08-13 11:22 | disposition home or self-care (01) ==
PROVIDERS: Emergency Provider Nurse Practitioner; PCP Nurse Practitioner Family
DX: M25.512 Pain in left shoulder (principal)
CPT/HCPCS: 73030; 73060; 99213; G0381

== ENCOUNTER 2025-04-16 14:37 | Emergency (ER) | payer MEDICARE, OTHER, SELFPAY ==
--- OUTSIDE RECORDS SUMMARY | 2023-08-26 20:00 | XMS_ITS | Continuity of Care Document ---
Author Organization [address] [place] [address] [address] [address] [facility] [address] [place] [address] Phone Care Team Providers Care Lining Finisher Name Role Phone Adam Cardona DPM Unavailable Unavailable Allergies, Adverse Reactions, Alerts Substance Reaction Status Criticality No Known Allergies Active No Inform ation Medications Medication Instructions Dosage Effective Dates (start - stop) Status Comments carbidopa ER 50 mg-levodopa 200 mg tablet,extended release - Active carbidopa 25 mg-levodopa 100 mg tablet - Active donepezil 10 mg tablet - Act aamir diclofenac sodium 75 mg tablet,delayed release - Active propranolol 10 mg tablet - A ctive sertraline 50 mg tablet - Ac tive atorvastatin 40 mg tablet - Active trazodone 50 mg tablet - Act aamir hydrocodone 7.5 mg-acetaminophen 325 mg tablet - Active Nuplazid 34 mg capsule - Act aamir rasagiline 0.5 mg tablet - A ctive Procedures Procedure Date DEBRIDE NAIL 6 OR MORE EYE EXAM NEW PATIENT Advance Directives Directive Yes / No Effective Date File Name No Information Encounters Encounter Description Practice Location Reason(s) For Visit Diagnoses Date Provider Providers Copied on Encounter [facility], [address], [place], [place], [id number], tel:[phone] [facility] Tinea unguiumOther specified peripheral vascular diseases 3 Brendan Medina. [address], [address], [place], [address], [place]. Referring Provider: Clyde Pruitt. [address] [place] [address], [address], [place], [place], [id number], [place] tel:[phone] [facility] No Information 2 Tom Mendoza [place]. [address] [place] [address], [address], [place], [place], [id number], [place] tel:[phone] [facility] Dry eyes (chief complaint) Dry eye syndrome of bilateral lacrimal glands 2 Tom Jacobs [place]. Referring Provider: Clyde Pruitt. Family History Family Member Type Diagnosis Age At Onset No Information Payers Payer name Insurance type Covered constitution party ID Authoriza tijanina(s) [employer] Medicare CI [id number] Social History Type Description Quantity Date Captured Comments Sex Male Smoking Status No Information Chief Complaint And Reason For Visit No Information Reason For Referral Reason For Referral No Information History Of Present Illness Encounter Date Complaint History Of Prese nt Illness Dry eyes The 61 year old male presents for evaluation of Dry eyes in the right eye and left eye. It occurs with no pattern. The condition is stable. Patient had LASIK by Outside Dr. Uses Equate lubricant eye drops bid OU. Functional Status Date Functional Assessmen t No Information Instructions Date Instruction Additional Infor mation Toenails 1-5 b/l wer e debrided in length and thickness without incident. Follow up in 2-3 months. Related to Tinea unguium Return in 12-15 [facility] for dilated fundus exam. Related to Dry eye syndrome of bilateral lacrimal glands Impression/Plan - Dr howell eye syndrome is significant; treat with artificial tears solution; 1 drop both eyes twice per day. Related to Dry eye syndrome of bilateral lacrimal glands Follow up - Return i n 12-15 months for dilated fundus exam. Related to Dry eye syndrome of bilateral lacrimal glands Assessments Type Assessment Date assessment Tinea unguium assessment Other specified peripheral vascu lar diseases Patient Care Teams Name Effective Dates (start - stop) Status Members No Information
[2025-04-16] VITALS (7 sets, daily range): BP systolic 138–180; BP diastolic 85–99; PULSE 79–88; RESP 17–19; TEMP 36.9–37.1; O2SAT 95–99; BMI 31.7
--- OUTSIDE RECORDS SUMMARY | 2025-04-16 14:47 | XMS_ITS | Data Portability ---
Author Organization [facility] ADMIN Address [address] [place] [id number] Assessment No assessment recorded. Plan of Treatment Reminders Order Date Submit Date Provider Last Modified By Organization Details Last Modified Time Details Appointments None record ed. Lab None record ed. Referral None record ed. Procedures None record ed. Surgeries None record ed. Imaging None record ed. Medication Orders None record ed. Patient TargetsNo targets recorded. Patient InstructionsNo instructions recorded. Reason for Referral None Reported. Problems Name Problem SNOMED Code Status Onset Date Resolution Date Notes Provider Name and Address Organization Details Recorded Time Parkinson's disease 32813716 Active 2021 Skye Pham MD [address] [place] [address], [phone], [facility] & [place] 2 15:06:52 Mild neurocognitive disorder 413736510 Active 2021 Skye Pham MD [address] [place] [address], [phone], [facility] & [place] 2 15:06:54 Problem Notes None recorded. Procedures Surgical History Date Name Laterality Status Provider Name and Address Organization Details Recorded Time Unlisted px posterior segmnt completed Bridget Luna [facility] & [place] 07/04/2022 14:56:55 Imaging Results None recorded. Procedure Notes None recorded. Medical Equipment None Reported. Allergies No known drug allergies Medications Name Sig Start Date Stop Date Status Note LastModified by Organization Details LastModified Time atorvastatin 40 mg tablet active Not Available Not Available Not Available donepezil 5 mg tablet 2021 completed Not Available Not Available Not Available trazodone 50 mg tablet active Not Available Not Available No t Available donepezil 10 mg tablet active Not Available Not Available No t Available carbidopa ER 50 mg-levodopa 200 mg tablet,extende d release active Not Available Not Available No t Available propranolol 10 mg tablet active Not Available Not Available No t Available hydrocodone 7.5 mg-acetaminoph en 325 mg tablet active Not Available Not Available Not Available cephalexin 500 mg capsule 2021 completed Not Available Not Available Not Available diclofenac sodium 75 mg tablet,delayed release active Not Available Not Available Not Available mupirocin 2 % topical ointment 2021 completed Not Available Not Available Not Available propranolol 20 mg tablet 2021 completed Not Available Not Available Not Available carbidopa 25 mg-levodopa 100 mg tablet active Not Available Not Availabl e Not Available sertraline 50 mg tablet active Not Available Not Available No t Available rasagiline 0.5 mg tablet 2021 completed Not Available Not Available Not Available Nuplazid 34 mg capsule 2021 completed Not Available Not Available Not Available Vitals Date Recorded Body height Body mass index (BMI) Body weight Body temperature Oxygen saturation Oxygen saturation in Arterial blood by Pulse oximetry Heart rate Systolic And Diastolic Provider Name and Address Organization Details Last Updated DateTime 2 175.26 cm 34.6 kg/m2 819643. 61 g 97.8 [degF] 98 % 98 % 62 /min 132/80 mm[Hg] [facility] 13:57:22 Date Recorded Body height Body mass index (BMI) Body weight Body temperature Oxygen saturation Oxygen saturation in Arterial blood by Pulse oximetry Heart rate Systolic And Diastolic Provider Name and Address Organization Details Last Updated DateTime 2 175.26 cm 34.6 kg/m2 739342. 61 g 98.7 [degF] 98 % 98 % 56 /min 128/79 mm[Hg] [facility] 2 14:03:59 Social History None recorded. Functional Status None recorded. Mental Status None recorded. Family History Relationship Description Onset Age of this Age Resolved Age Notes LastModified by Organization Details LastModified Time [facility] available 07/04/2022 14:55:19 Mother Coronary arterioscler osis jeanes Not available 07/04/2022 14:55:34 Father Malignant neoplasm of prostate [email or web address] Not available 2021 14:56:02 Father Dementia [email or web address] Not available 07/04/2022 14:56:12 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 Condition Response Hyperlipidemia Y Arthritis Y Hypertension Y Depression Y Parkinson's Disease Y Past Encounters Encounter ID Performer Location Encounter Start Date Encounter Closed Date Diagnosis/Indication Diagnosis SNOMED-CT Code Diagnosis ICD10 Code Diagnosis Note [id number] Skye Pham MD [facility] [address] [place] [address] [place] [address] 07/08/2022 13:42:38 07/08/2022 14:31:02 Parkinson's disease 80932284 G20 difficult to control Parkinson' s disease, definitely needs higher dose of carbidopa levodopa, unable to afford kynmobi and or rasagiline . Definitely believe that physical therapy would be of benefit to him, will increase overall carbidopa levodopa dose to 2 tablets 3 times a day and follow-up with me over the next 2 months. Dementia a ssociated with another disease [id number] F02.80 [id number] MD [facility] [address] [place] [address] [place] [address] 09/02/2022 13:54:02 09/02/2022 15:16:35 Parkinson's disease 06552415 G20 difficult to control Parkinson' s disease, definitely needs higher dose of carbidopa levodopa, unable to afford kynmobi and or rasagiline . I will continue his long-actin g Sinemet but increase his short-acti ng Sinemet to 2 tablets at 7 in the morning, noon and 4:00 p.m.. Patient will need to be reassessed , we have discussed at length where he should follow-up due to my departure and I have recommende d local neurology follow-up in since the [facility]. His records can be sent where he needs them. Mild neuro cognitive disorder 337179654 G31.84 Health Concerns Section Related Observation LastModified by Organization Detai ls LastModified Time None Recorded Concern Status LastModified by Organization Details LastModified Time None Recorded Advance Directives Directive None Recorded Payers Insurance Date Sequence Insurance Name Policy Number Policy Bell Covered Member ID Bell Member ID Guarantor Name 04/10/2024 1 [email or web address] (MEDICAID REPLACEMENT - HMO) Kleber Altamirano [id number] Kleber Altamirano 04/10/2024 1 [employer] (MEDICARE REPLACEMENT/AD VANTAGE - PPO) Kleber Altamirano [id number] Kleber Altamirano Notes Date Note Type Note Provider Name and Address Organization Details Recorded Time 07/08/2022 text/html Patient follows up today, history of Parkinson's disease, currently in a nursing care facility, complains of increased freezing, increased difficulty getting up out of a chair, he has also had some weight gain which makes his walking more difficult. He currently is on carbidopa levodopa extended release 50/200 twice a day and 25/100 3 times a day. I do believe that we need to increase this to possibly 2 tablets 3 times a day. Also agree with physical therapy. Skye Pham M.D [address] [place] [address], [address], [place], [phone], [facility] & [place] 07/08/2022 14:26:38 09/02/2022 text/html patient follows up today, longstanding history parkinsonian features with associated mild dementia, overall he has been relatively stable but still complains of some difficulty with stiffness and paucity of movement. There really has been no dyskinesias or signs of over treatment. He is currently on a combination of Sinemet CR 50/200 twice a day and then on Sinemet 25/100 2 in the morning 1 in the early afternoon and 1 in the evening. Patient states that this is fairly irregular and that he feels he has too much medication toward the latter half of the day and not enough in the morning. Patient has undergone physical therapy and this was quite helpful. He unfortunately has used all his therapy days however. In addition patient is financially unable to use either rasagiline or kynmobi. Skye Pham MD [address] [facility], [place], [address], [facility] & [place] 09/02/2022 15:08:15
--- NOTE | 2025-04-16 14:53 | ED_ITS ---
<Statement entered by Katlin Luis DO - 04/16/25 22:04> I was consulted by the ARON, and we discussed the complexity of the problems being addressed. I approved the treatment and management plan for this patient's care in the emergency department, thus performing a substantive portion of the medical decision making. Katlin Luis DO Discharge Plan Disposition Patient Disposition: Left Against Medical Advice Condition: Good Prescriptions Prescriptions: No Action hydrocodone-acetaminophen 5-325 mg tablet 2 tab PO TID PRN diclofenac sodium 75 mg tablet,delayed release (DR/EC) 75 mg PO BID carbidopa-levodopa 25-100 mg tablet 2 tab PO TID donepezil [Aricept] 10 mg tablet 10 mg PO HS atorvastatin 40 mg tablet 40 mg PO HS cholecalciferol (vitamin D3) 25 mcg (1,000 unit) capsule 25 mcg PO DAILY cyanocobalamin (vitamin B-12) 1,000 mcg capsule 1,000 mcg PO DAILY sertraline [Zoloft] 50 mg tablet 50 mg PO DAILY amantadine HCl 100 mg capsule See Rx Instructions .ROUTE .COMPLEX Qty: 60 4RF Dose Instruction: TAKE 1 CAPSULE BY MOUTH TWICE A DAY Rx Instructions: TAKE 1 CAPSULE BY MOUTH TWICE A DAY entacapone 200 mg tablet 200 mg PO TID Qty: 90 11RF carbidopa-levodopa 50-200 mg tablet extended release See Rx Instructions .ROUTE .COMPLEX Qty: 90 11RF Dose Instruction: TAKE 1 TABLET BY MOUTH THREE TIMES DAILY Rx Instructions: TAKE 1 TABLET BY MOUTH THREE TIMES DAILY Referrals Follow up/Referrals: Neelam Winslow APRN [Primary Care Provider, Medical] - See instructions Activity Restrictions/Add. Instructions Additional Instructions/Restrictions: We will call you with once the full results of your radiology report have been released. Please return to the emergency department with any worsening signs or symptoms. Please follow-up with your PCP, in 5 to 7 days for removal of your sutures in your right forehead, please return to the emergency department or your family physician for removal of the sutures in your left finger in 7 to 10 days. Clinical Impressions Clinical Impression: Laceration of scalp, Laceration of finger Fall Qualifiers: Encounter type: initial encounter Qualified Code(s): W19.XXXA - Unspecified fall, initial encounter Print Language Print Language: Polish Discharge ED Provider: Katlin Luis General Adult HPI <LB Croft - Last Filed: 04/16/25 16:28> General Chief complaint: Fall Stated complaint: AO-Fall 1400- head injury Time Seen by Provider: 04/16/25 14:43 Mode of Arrival: Ambulatory Source of Information: Patient Limitations: No Limitations History of Present Illness HPI narrative: 64-year-old male presents to the emergency department accompanied by his significant other for an unwitnessed fall that occurred today, patient denies any LOC, he was utilizing his cane, instead of his walker, when he tripped , striking the head on the right side, he has no acute complaints currently, denies any presyncopal or syncopal type events, denies any lightheaded dizziness fever chills headache chest pain, shortness of breath, no upper or lower extremity injury, does have some abrasions noted on bilateral hands multiple fingers affected, as well as a small 1 cm laceration to the right frontal bone of the head/scalp, denies abdominal pain nausea vomiting constipation diarrhea, denies any lower extremity pain or injury, denies any saddle anesthesia, denies any neck pain, midthoracic back pain or lower back pain, nausea numbness tingling or radicular type symptomatology. Does endorse some numbness and tingling to bilateral feet, does have polyneuropathy, other past medical history consistent with Parkinson's disease, hammertoes, hyperlipidemia. Initial triage vitals unremarkable. Of note, patient has no history of anticoagulant use. Onset (ago): hour(s) Related Data Home Medications ?Medication ?Instructions ?Recorded ?Confirmed atorvastatin 40 mg tablet 40 mg PO HS 01/22/2303/16/ 5 cholecalciferol (vitamin D3) 25 25 mcg PO DAILY 03/16/25 mcg (1,000 unit) capsule cyanocobalamin (vitamin B-12) 1,000 mcg PO DAILY 01/2203/16/25 1,000 mcg capsule donepezil 10 mg tablet (Aricept) 10 mg PO HS 01/22/23 03/16/25 sertraline 50 mg tablet (Zoloft) 50 mg PO DAILY 03/16/25 carbidopa 25 mg-levodopa 100 mg 2 tab PO TID 01/31/25 03/16/25 tablet diclofenac sodium 75 mg 75 mg PO BID 01/31/25 tablet,delayed release hydrocodone 5 mg-acetaminophen 325 2 tab PO TID PRN 03/16/25 mg tablet Previous Rx's ?Medication ?Instructions ?Recorded amantadine HCl 100 mg capsule See Rx Instructions .Rou te 08/02/24 .COMPLEX #60 caps entacapone 200 mg tablet 200 mg PO TID #90 tabs 08/02 carbidopa ER 50 mg-levodopa 200 mg See Rx Instructions .Route 12/20/24 tablet,extended release .COMPLEX #90 tabs Allergies Allergy/AdvReac Type Severity Reaction Status Date / Time No Known Allergies Allergy Verified 03/16/25 10:56 [facility] <LB Croft - Last Filed: 04/16/25 16:28> [facility] Disclaimer: The information contained in this section may have been updated after the patient was seen, as this information can be updated by other users. 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 Chest pain Recurrent chest pressure in the last few weeks. Today the patient was asymptomatic. Arthritis Hyperlipidemia Memory loss Memory loss currently on donezepil 10 mg p.o. nightly. Differential gnosis includes: MCI with memory loss versus subcortical dementia of Lewy body. Denies parasomnias, REM behavior disorder, hallucinations. Surgical History History of artificial eye lens Family History Other Coronary artery disease Diabetes Hypertension Social History Smoking Status: Never smoker alcohol intake: never substance use type: denies use current occupational status: retired Travel in the last 8 weeks?: None Have you lived/traveled outside US in past 30 days?: No Contact w/someone who lives/traveled outside US past 30 days?: No Exposure to someone with infectious disease in past 14 days?: No Do you have a fever (greater than 100.4 F or 38 C)?: No Have you tested positive for COVID-19?: No Exposed to someone with COVID-19 in past 14 days?: No Do you have a sore throat?: No Do you have a cough?: No Do you have any weakness?: No Do you have any diarrhea?: No Are you experiencing any unusual bleeding?: No Do you have any muscle aches/pain?: No Do you have any abdominal pain?: No Are you experiencing loss of taste or smell?: No Other 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 Have you received the Flu Vaccine for this season: No Have you received the Pneumonia Vaccine: No <LB Croft - Last Filed: 04/16/25 16:28> ROS Obtained: Yes All systems reviewed & no additional complaints except as documented Physical Exam <LB Croft - Last Filed: 04/16/25 16:28> General General appearance: alert and in no apparent distress Head Head exam: atraumatic and normocephalic Eye Eye exam: Present PERRL and EOMI ENT ENT exam: Present mucous membranes moist Neck Neck exam: Present normal inspection Chest Chest inspection: Present normal inspection and symmetric chest wall rise Respiratory Respiratory exam: Present normal lung sounds bilaterally; Absent respiratory distress Cardiovascular Cardiovascular exam: Present regular rate and normal rhythm Abdominal Exam Abdominal exam: Present soft; Absent tenderness, guarding or rebound Extremities Exam Extremities exam: Present normal inspection, full ROM and other (No pain to palpation to the upper or lower extremities, good range of motion, otherwise neurovascular intact. ); Absent tenderness Back Exam Back exam: Present normal inspection; Absent full ROM, tenderness, sciatic notch tenderness (R), straight leg raise (R) or straight leg raise (L) Neurological Exam Neurological exam: Present alert, oriented X3 and other (Some cogwheel rigidity/slow to initiate movements, with pill-rolling tremor noted in the upper extremities, goes along with patient's history of Parkinson's disease, otherwise GCS of 15., No focal neurological deficit,) Psychiatric Psychiatric exam: Present normal affect Skin Skin exam: Present warm, dry and other (1 cm laceration on the right frontal region of the patient's scalp/head, bilateral abrasions noted on multiple fingers and hands plantar surface and dorsal surface, on the patient's fourth digit on the left hand, around the PIP joint, does have a small laceration/irregular skin flap noted) Medical Decision Making <LB Croft - Last Filed: 04/16/25 16:28> Medical Records Medical records reviewed: Yes I reviewed the patient's medical records. Screening: Per USPSTF and CDC recommendations, given the prevalence of disease in our region, it is our hospital?s policy to screen for HIV and viral Hepatitis for all patients aged 18 and over and those with ongoing risk factors. Zafar Inquiry Pt receiving controlled substance: No Zafar was queried for this patient: No Vital Signs: 04/16/25 14:46 04/16/25 14:49 04/16/25 14:57 Temperature 98.8 F Temperature Source Oral Pulse Rate 88 Pulse Rate [Left] 88 Respiratory Rate 19 19 Blood Pressure 138/90 Blood Pressure [Right Arm] 138/90 Blood Pressure Mean 102 Blood Pressure Mean [Right Arm] 106 Blood Pressure Source [Right Arm] Automatic Cuff Blood Pressure Position [Right Arm] Sitting 02 Sat by Pulse Oximetry 95 95 95 Oxygen Delivery Method Room Air Room Air Room Air 04/16/25 15:01 Temperature Temperature Source Pulse Rate 82 Pulse Rate [Left] Respiratory Rate 17 Blood Pressure 162/94 H Blood Pressure [Right Arm] Blood Pressure Mean 116 Blood Pressure Mean [Right Arm] Blood Pressure Source [Right Arm] Blood Pressure Position [Right Arm] 02 Sat by Pulse Oximetry 95 Oxygen Delivery Method Room Air Orders (Tests/Meds): ED MEDICATIONS Discontinued Medications Generic Name Dose Route Start Last Admin Trade Name Freq PRN Reason Stop Dose Admin Lidocaine HCl 10 ml 04/16/25 15:28 04/16/25 15:33 Lidocaine 1% 10ml Mdv IJ 04/16/25 15:29 10 ml ONCE ONE Administration ORDERS Category Date Time Status CT cervical spine wo con Stat Cat Scan 04/16/25 14:[address] facial bones wo con Stat Cat Scan 04/16/25 15:[address] head/brain wo con Stat Cat Scan 04/16/25 14:59 Taken XR hand LT 2V Stat Exams 04/16/25 15:00 Taken XR hand RT 2V Stat Exams 04/16/25 15:00 Taken Medical Decision Narrative: 64-year-old male presents to the emergency department with a fall, differential diagnose include but not limited to head injury, superficial abrasions, laceration, hand fracture, hand sprain/strain, facial fracture, postconcussive syndrome, acute SDH, traumatic SAH, other soft tissue injury. I discussed this patient's case with the attending physician Dr. Luis Will obtain CT head without contrast, CT face without contrast, CT cervical spine without contrast, bilateral hand x-rays for further evaluation and characterization, per patient and significant other/farm agent at the bedside states that the patient is up-to-date current on his vaccinations to include tetanus prophylaxis. I along with my physician registered dental assistant student performed laceration repair of the patient's 2 lacerations, utilizing approximately 6 mL of 1% lidocaine, after copious irrigation with Hibiclens and normal saline, and some debridement of 1 piece of gravel , in the patient's left fourth digit, patient's scalp laceration was closed with four 5-0 nylon sutures, four 1 cm right scalp laceration, after approximately 4 mL of lidocaine was applied via local analgesia technique, patient tolerated procedure well, no apparent complications. Patient required only one 5-0 nylon suture for the patient's small less 0.5 cm laceration with irregular skin flap of his left fourth digit, after 2 mL of lidocaine was applied. Patient Toller procedure well, see procedure note for full details. I reviewed and independently interpreted the patient's CT of the face neck head, x-rays of bilateral hands, no acute abnormalities, however full radiology report is not available for my interpretation/review at this time. I had a long discussion with the patient at the bedside as well as POA at the bedside, patient would not like to wait for the full radiology report, discussed all risks of leaving AGAINST MEDICAL ADVICE and not waiting for full formal radiology report. Patient and POA voiced understanding and agreement with current discharge plan to leave AGAINST MEDICAL ADVICE, will call patient with any subtle findings noted on radiology report. Patient and family voiced understanding and agreement with the current plan. <Katlin Luis, DO - Last Filed: 04/16/25 15:53> Vital Signs: 04/16/25 14:46 04/16/25 14:49 04/16/25 14:57 Temperature 98.8 F Temperature Source Oral Pulse Rate 88 Pulse Rate [Left] 88 Respiratory Rate 19 19 Blood Pressure 138/90 Blood Pressure [Right Arm] 138/90 Blood Pressure Mean 102 Blood Pressure Mean [Right Arm] 106 Blood Pressure Source [Right Arm] Automatic Cuff Blood Pressure Position [Right Arm] Sitting 02 Sat by Pulse Oximetry 95 95 95 Oxygen Delivery Method Room Air Room Air Room Air 04/16/25 15:01 Temperature Temperature Source Pulse Rate 82 Pulse Rate [Left] Respiratory Rate 17 Blood Pressure 162/94 H Blood Pressure [Right Arm] Blood Pressure Mean 116 Blood Pressure Mean [Right Arm] Blood Pressure Source [Right Arm] Blood Pressure Position [Right Arm] 02 Sat by Pulse Oximetry 95 Oxygen Delivery Method Room Air Orders (Tests/Meds): ED MEDICATIONS Discontinued Medications Generic Name Dose Route Start Last Admin Trade Name Juju PRN Reason Stop Dose Admin Lidocaine HCl 10 ml 04/16/25 15:28 04/16/25 15:33 Lidocaine 1% 10ml Mdv IJ 04/16/25 15:29 10 ml ONCE ONE Administration ORDERS Category Date Time Status CT cervical spine wo con Stat Cat Scan 04/16/25 14:[address] facial bones wo con Stat Cat Scan 04/16/25 15:[address] head/brain wo con Stat Cat Scan 04/16/25 14:59 Taken XR hand LT 2V Stat Exams 04/16/25 15:00 Taken XR hand RT 2V Stat Exams 04/16/25 15:00 Taken ECG Data Tracing #1: I reviewed this ECG and interpreted as documented below: I independently interpreted EKG at 1534 and noted sinus rhythm with occasional PVCs. No acute ST changes concerning for ischemia. Normal intervals otherwise ECG initial impression date: 04/16/25 ECG initial impression time: 15:34 Procedures <LB Croft - Last Filed: 04/16/25 16:28> Laceration Laceration 1: Site: scalp and face Side (If applicable): right Size (cm): 1 Description: linear Depth: simple, single layer Local Anesthetic: lidocaine 1% Amount of anesthesia used (mL): 4 Pre-repair: wound explored, irrigated extensively and deep structures intact Skin layer closed with: nylon Size (cm): 5-0 Number of sutures: 4 Technique: simple, interrupted Laceration 2: Site: finger and hand Side (If applicable): left Size (cm): 0.5 Description: flap Depth: simple, single layer Local Anesthetic: lidocaine 1% Amount of anesthesia used (mL): 2 Pre-repair: wound explored and irrigated extensively Skin layer closed with: nylon Size (cm): 5-0 Number of sutures: 1 Technique: simple, interrupted Critical Care <LB Croft - Last Filed: 04/16/25 16:28> Critical Care Time Critical Care Time: No
--- NOTE | 2025-04-16 14:59 | CT_ITS ---
PROCEDURE INFORMATION: Exam: CT Head Without Contrast Exam date and time: 04/16/2025 3:15 PM Age: 64 years old Clinical indication: Injury or trauma; Fall; Other: Pain; Additional info: Fall, head trauma TECHNIQUE: Imaging protocol: Computed tomography of the head without contrast. Radiation optimization: All CT scans at this facility use at least one of these dose optimization techniques: automated exposure control; mA and/or kV adjustment per patient size (includes targeted exams where dose is matched to clinical indication); or iterative reconstruction. COMPARISON: CT HEAD/BRAIN WO CON 04/16/2025 3:15 PM FINDINGS: Brain: No acute intracranial hemorrhage.. There is moderate diffuse heterogeneity of the white matter attenuation, consistent with chronic white matter ischemic changes. Moderate cerebral atrophy Cerebral ventricles: No ventriculomegaly. Paranasal sinuses: Visualized sinuses are unremarkable. No fluid levels. Mastoid air cells: Visualized mastoid air cells are well aerated. Bones: Unremarkable. No acute fracture. Soft tissues: Unremarkable. IMPRESSION: No acute intracranial hemorrhage..
--- NOTE | 2025-04-16 14:59 | CT_ITS ---
PROCEDURE INFORMATION: Exam: CT Cervical Spine Without Contrast Exam date and time: 04/16/2025 3:21 PM Age: 64 years old Clinical indication: Injury or trauma; Fall; Other: Pain TECHNIQUE: Imaging protocol: Computed tomography of the cervical spine without contrast. Radiation optimization: All CT scans at this facility use at least one of these dose optimization techniques: automated exposure control; mA and/or kV adjustment per patient size (includes targeted exams where dose is matched to clinical indication); or iterative reconstruction. COMPARISON: CT FACIAL BONES WO CON 04/16/2025 3:18 PM FINDINGS: Bones: No acute fracture of the cervical spine. No subluxation or dislocation of the cervical spine. Intervertebral disc space narrowing C5 through C7 may represent degenerative disc disease.. Anterior osteophyte formation C3 through C7. Posterior osteophyte formation C5 through C7. Degenerative changes in the facets at multiple levels. Degenerative changes at C1/C2 Lungs: Lung apices are normal. Thyroid: The thyroid is unremarkable Soft tissues: Unremarkable. IMPRESSION: 1. No acute fracture of the cervical spine. 2. No subluxation or dislocation of the cervical spine. 3. Intervertebral disc space narrowing C5 through C7 may represent degenerative disc disease..
--- NOTE | 2025-04-16 15:00 | XR_ITS ---
PROCEDURE INFORMATION: Exam: XR Right Hand Exam date and time: 04/16/2025 3:22 PM Age: 64 years old Clinical indication: Injury or trauma; Fall; Other: Pain; Additional info: Fall, bilateral hand injury TECHNIQUE: Imaging protocol: Radiologic exam of the right hand. Views: 1 or 2 views. COMPARISON: No relevant prior studies available. FINDINGS: Bones/joints: There is joint space narrowing in the DIP joints and PIP joints of the fingers and IP joint of the thumb consistent with degenerative changes. Degenerative changes in the index finger and long finger metacarpophalangeal joint. Degenerative changes in the thumb carpometacarpal joint and radiocarpal joint. There is no evidence of acute fracture.There is no evidence of malalignment or dislocation. Soft tissues: Normal. IMPRESSION: 1. There is joint space narrowing in the DIP joints and PIP joints of the fingers and IP joint of the thumb consistent with degenerative changes. 2. Degenerative changes in the index finger and long finger metacarpophalangeal joint. 3. Degenerative changes in the thumb carpometacarpal joint and radiocarpal joint. 4. There is no evidence of acute fracture.There is no evidence of malalignment or dislocation.
--- NOTE | 2025-04-16 15:00 | XR_ITS ---
PROCEDURE INFORMATION: Exam: XR Left Hand Exam date and time: 04/16/2025 3:22 PM Age: 64 years old Clinical indication: Injury or trauma; Fall; Other: Pain; Additional info: Fall bilateral hand injuries TECHNIQUE: Imaging protocol: Radiologic exam of the left hand. Views: 1 or 2 views. COMPARISON: CR XR HAND LT MIN 3V 01/25/2024 2:56 PM FINDINGS: Bones/joints: Severe joint space narrowing in the long finger metacarpophalangeal joint consistent with significant degenerative changes.. Malunion of the distal radius fracture. Degenerative changes in the radiocarpal joint.. There is joint space narrowing in the DIP joints and PIP joints of the fingers and IP joint of the thumb consistent with degenerative changes. There is no evidence of acute fracture.There is no evidence of malalignment or dislocation. Soft tissues: Soft tissue swelling of the wrist and distal forearm IMPRESSION: 1. Severe joint space narrowing in the long finger metacarpophalangeal joint consistent with significant degenerative changes.. 2. Malunion of the distal radius fracture. Degenerative changes in the radiocarpal joint.. 3. There is joint space narrowing in the DIP joints and PIP joints of the fingers and IP joint of the thumb consistent with degenerative changes. 4. There is no evidence of acute fracture.There is no evidence of malalignment or dislocation.
--- NOTE | 2025-04-16 15:00 | CT_ITS ---
PROCEDURE INFORMATION: Exam: CT Maxillofacial Without Contrast Exam date and time: 04/16/2025 3:18 PM Age: 64 years old Clinical indication: Injury or trauma; Fall; Other: Pain; Additional info: Fall, right-sided facial trauma TECHNIQUE: Imaging protocol: Computed tomography of the face without contrast. Radiation optimization: All CT scans at this facility use at least one of these dose optimization techniques: automated exposure control; mA and/or kV adjustment per patient size (includes targeted exams where dose is matched to clinical indication); or iterative reconstruction. COMPARISON: CT FACIAL BONES WO CON 04/16/2025 3:18 PM FINDINGS: Paranasal sinuses: Minimal mucoperiosteal thickening in the ethmoid sinuses may represent minimal sinusitis. Orbital cavities: Orbits are normal. Globes are unremarkable. Bones: No acute fracture. Soft tissues: Unremarkable. IMPRESSION: Minimal mucoperiosteal thickening in the ethmoid sinuses may represent minimal sinusitis. No acute fracture
--- NOTE | 2025-04-16 15:32 | ECG_ITS ---
APPROVED REPORT Exam: Resting ECG HR:79 bpm ECG Measurements Heart Rate 79 AXES NH 196 P 60 QRSd 104 QRS 64 QT 400 T 12 QTc 434 Conclusion SINUS RHYTHM WITH OCCASIONAL VENTRICULAR PREMATURE COMPLEXES NONSPECIFIC T-WAVE ABNORMALITY BORDERLINE ECG Electronically signed by : EDWIN BLANCO, 04/17/2025 07:27:11
[2025-04-16] MEDS: LIDOCAINE 1% 10ML MDV 10 ML IJ (15:33)
--- NOTE | 2025-04-16 16:38 | PC.NURSE ---
AMA Form complete and placed on chart. Patient advised of risk versus benefits of staying for radiology results versus leaving AMA. Patient and family verbalize understanding, patient states he still wishes to go. Provider aware.
== END 2025-04-16 16:35 | disposition left against medical advice (07) ==
PROVIDERS: Emergency Provider Emergency Medicine; PCP Nurse Practitioner Family
DX: S01.01XA Laceration without foreign body of scalp, initial encounter (principal); S61.215A Laceration without foreign body of left ring finger without damage to nail, initial encounter; I49.3 Ventricular premature depolarization; W01.198A Fall on same level from slipping, tripping and stumbling with subsequent striking against other object, initial encounter
CPT/HCPCS: 12001; 70450; 70486; 72125; 73120; 93005; 99285; J2003

== ENCOUNTER 2025-05-26 10:44 | Outpatient (CLI) | payer MEDICARE, OTHER, SELFPAY ==
--- OUTSIDE RECORDS SUMMARY | 2023-08-26 20:00 | XMS_ITS | Continuity of Care Document ---
Author Organization [address] [place] [address] Address [address] [facility] [address] [place] [address] Phone Care Team Providers Care Burring Wheel Operator Name Role Phone Adam Cardona DPM Unavailable [...] Active Nuplazid 34 mg capsule - Act aamri rasagiline 0.5 mg tablet - A ctive Procedures Procedure Date DEBRIDE NAIL 6 OR MORE EYE EXAM NEW PATIENT Advance Directives Directive Yes / No Effective Date File Name No Information Encounters Encounter Description Practice Location Reason(s) For Visit Diagnoses Date Provider Providers Copied on Encounter [facility], [address], [place], [place], [id number], tel:[phone] [facility] Tinea unguiumOther specified peripheral vascular diseases 3 Brendan Medina. [address], [address], [place], [address], [place]. Referring Provider: Clyde Pruitt. [address] [place] [address], [address], [place], [place], [id number], [place] tel:[phone] [facility] No Information [address] [place] [address], [address], [place], [place], [id number], [place] tel:[phone] [facility] Dry eyes (chief complaint) Dry eye syndrome of bilateral lacrimal glands [address] Referring Provider: Clyde Pruitt. Family History Family Member Type Diagnosis Age At Onset No Information Payers Payer name Insurance type Covered alliance party ID Authoriza tijanina(s) [employer] Medicare CI [id number] Social History Type Description Quantity Date Captured [...]
--- NOTE | 2025-05-26 10:45 | XR_ITS ---
FINAL REPORT TECHNIQUE: 4 views left wrist CLINICAL HISTORY: left wrist pain COMPARISON: 04/16/2025 FINDINGS: LEFT WRIST 4 views demonstrate fracture deformity of the distal radial metaphysis, with marked narrowing of the radiocarpal joints. The appearance is consistent with a healed intra-articular displaced fracture. There is an ossific density adjacent to the distal ulnar styloid. There is a new oblique fracture of the fourth proximal metacarpal when compared to the prior exam. The visualized joint spaces are normally aligned. The soft tissues are unremarkable. IMPRESSION: Oblique fracture of the fourth proximal metacarpal, new since the prior exam of 04/16/2025. Fracture deformities and degenerative change are once again identified. Reviewed, Interpreted and Dictated by Eloy Pollock MD Transcribed by Lu Mitchell Authenticated and [facility]
== END 2025-05-26 23:59 | disposition home or self-care (01) ==
LOC: RAD 10:45
PROVIDERS: PCP Family Medicine; Visit Provider Physician Assistant
DX: S62.395A Other fracture of fourth metacarpal bone, left hand, initial encounter for closed fracture (principal); M19.032 Primary osteoarthritis, left wrist
CPT/HCPCS: 73110

== ENCOUNTER 2025-06-23 09:41 | Outpatient (CLI) | payer MEDICARE, OTHER, SELFPAY ==
--- OUTSIDE RECORDS SUMMARY | 2025-06-23 09:45 | XMS_ITS | Data Portability ---
Author Organization [facility] & [facility] ADMIN Address [address] [place] [id number] Assessment No assessment recorded. Plan of Treatment [...] Address Organization Details Recorded Time Parkinson's disease 30951931 Active 2021 Skye Pham MD [address] [place] [address], [phone], [facility] & [place] 2 15:06:52 Mild neurocognitive disorder 918819338 Active 2021 Skye Pham MD [address] [place] [address], [phone], [facility] [place] 2 15:06:54 Problem Notes None recorded. Procedures Surgical History Date Name Laterality Status Provider Name and Address Organization Details Recorded Time Unlisted px posterior segmnt completed Bridget Luna [facility] & [place] 07/04/2022 14:56:55 Imaging Results None recorded. Procedure [...] Updated DateTime 2 175.26 cm 34.6 kg/m2 566408. 61 g 97.8 [degF] 98 % 98 % 62 /min 132/80 mm[Hg] [facility] 13:57:22 Date Recorded Body height Body mass index (BMI) Body weight Body temperature Oxygen saturation Oxygen saturation in Arterial blood by Pulse oximetry Heart rate Systolic And Diastolic Provider Name and Address Organization Details Last Updated DateTime 2 175.26 cm 34.6 kg/m2 818375. 61 g 98.7 [degF] 98 % 98 % 56 /min 128/79 mm[Hg] [facility] 2 14:03:59 Social History None recorded. Functional Status None recorded. Mental Status None recorded. Family History Relationship Description Onset Age of this Age Resolved Age Notes LastModified by Organization Details LastModified Time [email or web address] Not available 07/04/2022 14:55:19 Mother Coronary arterioscler [facility]sis [facility] Not available 07/04/2022 14:55:34 Father Malignant neoplasm of prostate [email or web address] Not available 2021 14:56:02 Father Dementia [email or web address] Not available 07/04/2022 14:56:12 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 Condition Response Hyperlipidemia Y Arthritis Y Hypertension Y Depression Y Parkinson's Disease Y Past Encounters Encounter ID Performer Location Encounter Start Date Encounter Closed Date Diagnosis/Indication Diagnosis SNOMED-CT Code Diagnosis ICD10 Code Diagnosis IMO Codes Diagnosis Note [id number] MD [facility] [address] [place] [phone] 07/08/2022 13:42:38 07/08/2022 14:31:02 Parkinson's disease 89618172 G20 difficult to control Parkinson' s disease, definitely needs higher dose of carbidopa levodopa, unable to afford kynmobi and or rasagiline . Definitely believe that physical therapy would be of benefit to him, will increase overall carbidopa levodopa dose to 2 tablets 3 times a day and follow-up with me over the next 2 months. Dementia a ssociated with another disease 373950681 F02.80 [id number] MD [facility] [address] [place] [phone] 09/02/2022 13:54:02 09/02/2022 15:16:35 Parkinson's disease 45599678 G20 difficult to control Parkinson' s disease, [...] he needs them. Mild neuro cognitive disorder 655725848 G31.84 Health Concerns Section Related Observation LastModified by Organization Detai ls LastModified Time None Recorded Concern Status LastModified by Organization Details LastModified Time None Recorded Advance Directives Directive None Recorded Payers Insurance Date Sequence Insurance Name Policy Number Policy Bell Covered Member ID Bell Member ID Guarantor Name 04/10/2024 1 [employer] (MEDICAID REPLACEMENT - HMO) Kleber Altamirano [id number] Kleber Altamirano 04/10/2024 1 [employer] (MEDICARE REPLACEMENT/AD VANTAGE - PPO) Kleber Altamirano [id number] Kleber Altamirano Notes Date Note Type Note [...] agree with physical therapy. Skye Pham M.D [address] [place] [address], [address], [phone], [facility] [place] 07/08/2022 14:26:38 09/02/2022 text/html patient follows up [...] either rasagiline or kynmobi. Skye Pham MD [address] [place] [address], [place], [address], [facility] [place] 09/02/2022 15:08:15
--- NOTE | 2025-06-23 09:49 | XR_ITS ---
FINAL REPORT CLINICAL HISTORY: left wrist fx COMPARISON: 05/26/2025. FINDINGS: LEFT WRIST Three views demonstrate a healed fracture deformity of the distal radial metaphysis extending into the epiphysis. A large amount of callus formation is noted. There is also an oblique minimally displaced fracture of the shaft of the fourth metacarpal. This was seen on a prior exam of 05/26/2025, and no evidence of callus formation is seen. The visualized joint spaces are normally aligned. The soft tissues are unremarkable. IMPRESSION: Oblique minimally displaced fracture of the shaft of the fourth metacarpal, seen on the prior exam, without evidence of callus formation. Remote fracture deformity of the distal radius as described. Reviewed, Interpreted and Dictated by Eloy Pollock MD Transcribed by Lu Mitchell Authenticated and [facility]
== END 2025-06-23 23:59 | disposition home or self-care (01) ==
LOC: RAD 09:42
PROVIDERS: PCP Internal Medicine Adolescent Medicine; Visit Provider Physician Assistant
DX: S62.325A Displaced fracture of shaft of fourth metacarpal bone, left hand, initial encounter for closed fracture; S52.592 Other fractures of lower end of left radius
CPT/HCPCS: 73110

== ENCOUNTER 2025-08-01 10:49 | Outpatient (CLI) | payer MEDICARE, OTHER, SELFPAY ==
--- NOTE | 2025-08-01 10:53 | XR_ITS ---
FINAL REPORT CLINICAL HISTORY: left wrist fx pt unsure when fx happened COMPARISON: 06/23/2025 FINDINGS: LEFT WRIST THREE VIEW FINDINGS: Three views show a healing spiral fracture of the fourth metacarpal. There is an old healed distal radial fracture. There is positive ulnar variance. IMPRESSION: Healing spiral fracture of the fourth metacarpal. Old healed distal radial fracture. Reviewed, Interpreted and Dictated by Laura Lloyd MD Transcribed by Gisella Tamez Authenticated and [facility]
--- OUTSIDE RECORDS SUMMARY | 2025-08-01 11:15 | XMS_ITS | Data Portability ---
Author Organization [facility] ADMIN Address [address] [place] [phone] Assessment No assessment recorded. Plan of Treatment [...] Address Organization Details Recorded Time Parkinson's disease [id number] Active 2021 Skye Pham MD [address] [place] [address], [phone], [facility] & [place] 2 15:06:52 Mild neurocognitive disorder 587636015 Active 2021 Skye Pham MD [address] [place] [address], [phone], [facility] & [place] 2 15:06:54 Problem Notes None recorded. Procedures Surgical History Date Name Laterality Status Provider Name and Address Organization Details Recorded Time Unlisted px posterior segmnt completed Bridget Luna [facility] [place] 07/04/2022 14:56:55 Imaging Results None recorded. Procedure [...] Updated DateTime 2 175.26 cm 34.6 kg/m2 526877. 61 g 97.8 [degF] 98 % 98 % 62 /min 132/80 mm[Hg] [facility] 13:57:22 Date Recorded Body height Body mass index (BMI) Body weight Body temperature Oxygen saturation Oxygen saturation in Arterial blood by Pulse oximetry Heart rate Systolic And Diastolic Provider Name and Address Organization Details Last Updated DateTime 2 175.26 cm 34.6 kg/m2 906430. 61 g 98.7 [degF] 98 % 98 % 56 /min 128/79 mm[Hg] [facility] 2 14:03:59 Social History None recorded. Functional Status None recorded. Mental Status None recorded. Family History Relationship Description Onset Age of this Age Resolved Age Notes LastModified by Organization Details LastModified Time Mother Diabetes mellitus [facility] Not available 07/04/2022 14:55:19 Mother Coronary arterioscler osis [place] Not available 07/04/2022 14:55:34 Father Malignant neoplasm of prostate [email or web address] Not available 2021 14:56:02 Father Dementia [email or web address] Not available 07/04/2022 14:56:12 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 Condition Response Hyperlipidemia Y Arthritis Y Hypertension Y Depression Y Parkinson's Disease Y Past Encounters Encounter ID Performer Location Encounter Start Date Encounter Closed Date Diagnosis/Indication Diagnosis SNOMED-CT Code Diagnosis ICD10 Code Diagnosis IMO Codes Diagnosis Note [id number] MD [facility] [address] [place] [phone] 07/08/2022 13:42:38 07/08/2022 14:31:02 Parkinson's disease 29804613 G20 difficult to control Parkinson' s disease, definitely needs higher dose of carbidopa levodopa, unable to afford kynmobi and or rasagiline . Definitely believe that physical therapy would be of benefit to him, will increase overall carbidopa levodopa dose to 2 tablets 3 times a day and follow-up with me over the next 2 months. Dementia a ssociated with another disease 306488273 F02.80 [id number] MD [facility] [address] [place] [phone] 09/02/2022 13:54:02 09/02/2022 15:16:35 Parkinson's disease 63492271 G20 difficult to control Parkinson' s disease, [...] he needs them. Mild neuro cognitive disorder 395717003 G31.84 Health Concerns Section Related Observation LastModified by Organization Detai ls LastModified Time None Recorded Concern Status LastModified by Organization Details LastModified Time None Recorded Advance Directives Directive None Recorded Payers Insurance Date Sequence Insurance Name Policy Number Policy Bell Covered Member ID Bell Member ID Guarantor Name 04/10/2024 1 [employer] (MEDICAID REPLACEMENT - HMO) Kleber Altamirano [id number] Kleber Altamirano 04/10/2024 1 [employer] (MEDICARE REPLACEMENT/AD VANTAGE - PPO) Kleber Altamirano [id number] Kleber Altamirano Notes Date Note Type Note [...] agree with physical therapy. Skye Pham M.D [address] [place] [address], [address], [address], [facility] & [place] 07/08/2022 14:26:38 09/02/2022 text/html patient follows up [...] either rasagiline or kynmobi. Skye Pham MD [address] [place] [address], [place], [address], [facility] & [place] 09/02/2022 15:08:15
== END 2025-08-01 23:59 | disposition home or self-care (01) ==
LOC: RAD 10:50
PROVIDERS: PCP Family Medicine; Visit Provider Physician Assistant
DX: X58.XXXD Exposure to other specified factors, subsequent encounter; S62.315D Displaced fracture of base of fourth metacarpal bone, left hand, subsequent encounter for fracture with routine healing
CPT/HCPCS: 73110

== ENCOUNTER 2025-08-24 13:06 | Outpatient (CLI) | payer MEDICARE, OTHER, SELFPAY ==
--- NOTE | 2025-08-24 13:10 | XR_ITS ---
FINAL REPORT CLINICAL HISTORY: left wrist fx, fall 1yr ago COMPARISON: 05/26/2025 and 08/01/2025 FINDINGS: AP, oblique, and lateral views of the left wrist were obtained. Deformity of the distal radius is unchanged since May consistent with old fracture. There is a fracture of the shaft of the 4th metacarpal which is unchanged from recent exam. There has been some interval healing since May. No new osseous abnormality identified. 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 There is no acute soft tissue abnormality. IMPRESSION: Fourth metacarpal fracture stable with interval healing since May. Distal radius deformity consistent with old fracture and stable. Reviewed, Interpreted and Dictated by Chelsea Prater MD Transcribed by Renay Brady Authenticated and . [facility]
== END 2025-08-24 23:59 | disposition home or self-care (01) ==
LOC: RAD 13:08
PROVIDERS: PCP Family Medicine; Visit Provider Physician Assistant
DX: S62.325D Displaced fracture of shaft of fourth metacarpal bone, left hand, subsequent encounter for fracture with routine healing (principal); Z87.81 Personal history of (healed) traumatic fracture; W19.XXXD Unspecified fall, subsequent encounter
CPT/HCPCS: 73110

== ENCOUNTER 2025-08-31 09:48 | Outpatient (CLI) | payer MEDICARE, OTHER, SELFPAY ==
[2025-08-31 11:01] LABS: Hematocrit 47.1 % (42.0-52.0); Hemoglobin 16.2 g/dL (14.1-18.0); Immature Granulocytes % 0.2 %; Mean Corpuscular HGB Conc 34.4 g/dL (31.8-35.4); Mean Corpuscular Hemoglobin 33.4 pg (27.0-31.2); Mean Corpuscular Volume 97.1 fl (80-94); Nucleated Red Blood Cells % 0 %; Platelet Count 178 K/mm3 (142-424); Red Blood Count 4.85 M/mm3 (4.60-6.20); Red Cell Distribution Width-SD 43.1 fL; White Blood Count 5.0 K/mm3 (4.8-10.8)
[2025-08-31 11:32] LABS: Alanine Aminotransferase 17 U/L (12-78); Albumin Level 4.6 g/dl (3.5-5.0); Albumin/Globulin Ratio 1.8 (1.1-1.8); Alkaline Phosphatase 105 U/L (38-126); Anion Gap 14.6 mEq/L (5-15); Aspartate Amino Transferase 26 U/L (17-59); Bilirubin,Total 1.0 mg/dl (0.2-1.3); Blood Urea Nitrogen 16 mg/dl (9-20); Calcium 9.1 mg/dl (8.4-10.2); Carbon Dioxide 22 mmol/L (22.0-30.0); Chloride 108 mmol/L (98-107); Cholesterol 125 mg/dl (140-200); Creatinine,Serum 0.60 mg/dl (0.66-1.25); Estimated Glomerular Filt Rate 135 ml/min (>60); GFR (African American) 163 ML/MIN (>60); Globulin 2.6 g/dL (1.3-3.2); Glucose 78 mg/dl (74-100); HDL Cholesterol 44 mg/dl (40-60); Potassium 4.6 mmoL/L (3.5-5.1); Sodium 140 mmol/L (136-145); Total Protein,Serum 7.2 g/dl (6.3-8.2); Triglycerides 113 mg/dl (30-150)
[2025-08-31 11:50] LABS: 25-OH Vitamin D, Total 40.8 ng/mL (30-100)
[2025-08-31 11:56] LABS: Free T4 (Free Thyroxine) 1.02 ng/dl (0.78-2.19)
[2025-08-31 12:03] LABS: Thyroid Stimulating Hormone 1.69 uIU/mL (0.465-4.68)
[2025-08-31 12:22] LABS: Vitamin B12 935 pg/mL (239-931)
[2025-08-31 14:23] LABS: Hemoglobin A1C 5.1 % (4.0-6.0)
== END 2025-08-31 23:59 | disposition home or self-care (01) ==
LOC: LAB.DROPOF 10:14
PROVIDERS: PCP Family Medicine; Visit Provider Nurse Practitioner Family
DX: E55.9 Vitamin D deficiency, unspecified (principal); Z13.1 Encounter for screening for diabetes mellitus; E78.5 Hyperlipidemia, unspecified; R41.3 Other amnesia
CPT/HCPCS: 36415; 80053; 80061; 82306; 82607; 83036; 84439; 84443; 85025